=== PATIENT | male | born 2000 | race Caucasian/White ===

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

== ENCOUNTER 2019-05-10 22:17 | Emergency (ER) | payer MEDICAID, SELFPAY ==
[2019-05-10 22:18] VITALS: BP 134/77; PULSE 97; RESP 15; TEMP 36.6; O2SAT 98; BMI 27.8
--- NOTE | 2019-05-10 22:43 | ED.RN ---
pt's sex changed to female on reg as pt is not surgically transitioned to a male. Difficulty obtaining ordered labs () due to pt being originally entered as male.
[2019-05-10] MEDS: 0.9% Normal Saline 1,000 ML 125 ML IV (22:52)
[2019-05-10 23:10] LABS: Absolute Lymphocyte Count 2.07 X10^3/uL (0.83-4.51); Absolute Neutrophil Count 4.6 X10^3/uL (2.0-7.7); Basophil# 0.05 X10^3/uL; Basophil% 0.7 % (0-1); Eosinophil# 0.17 X10^3/uL; Eosinophils% 2.2 % (0-5); Hemoglobin 14.3 g/dL (12.0-15.0); Lymphocyte # 2.07 X10^3/ul (4.0); Mean Corp Hgb Conc 32.5 g/dL (32-36); Mean Corpuscular Hgb 27.1 pg (27.0-32.0); Mean Corpuscular Volume 83.3 fL (81-99); Mean Platelet Vol. 9.2 fl (6.2-12.0); Monocyte# 0.73 X10^3/uL; Monocyte% 9.5 % (0-10); NRBC Flagged by Analyzer 0 % (0-5); Neutrophil # 4.64 X10^3/uL (2.7-7.7); Neutrophil % 60.3 % (47-70); Platelet Count 349 K/mm3 (150-450); RBC Distribution Width CV 12.6 % (11.6-14.6); RBC Distribution Width SD 38.3 fl (35.1-43.9); Red Blood Count 5.28 M/mm3 (4.2-5.4); White Blood Count 7.7 K/mm3 (4.4-11.0)
[2019-05-10 23:31] LABS: ALB/GLOB Ratio 1.2 RATIO (0.9-2.4); AST(SGOT) 7 U/L (15-37); Alanine Aminotransfer ALT/SGPT 15 U/L (13-56); Albumin, Serum 4.1 g/dL (3.2-5.0); Alkaline Phosphatase 65 U/L (45-117); Anion Gap 8 (5-15); BUN 12 mg/dL (7-18); BUN/Creat Ratio 10.9 RATIO (10-20); Calcium,Total 8.7 mg/dL (8.5-10.1); Chloride 109 mmol/L (98-107); EST Glomerular Filtration Rate 68 mL/min (>60); Est Glom Filt Rate - Afr Amer 82 mL/min (>60); Estimated Creatinine Clearance 77.01 ml/min; Globulin 3.4 g/dL (2.2-4.2); Glucose 80 mg/dL (74-106); Lipase 137 U/L (73-393); Potassium 3.7 mmol/L (3.5-5.1); Protein, Total 7.5 g/dL (6.4-8.2); Sodium Level 141 mmol/L (136-145)
[2019-05-10 23:48] LABS: Lactic Acid 0.9 mmol/L (0.4-2.0)
[2019-05-11 00:09] LABS: Squamous Epithelial Cells - UA 0 SEEN /hpf (5-10)
[2019-05-11 00:11] LABS: Color, Urine Yellow (Yellow); Glucose, Dipstick Normal (Normal); Ketone-Dipstick Negative (Negative); Leukocyte Esterase-Dipstick 100 /ul (Negative); Nitrite-Dipstick Negative (Negative); Occult Blood-Urine 150 /ul (Negative); Protein-Dipstick Negative (Negative); Specific Gravity, Urine 1.015 (1.002-1.030); Urine Bilirubin Dipstick Negative (Negative); Urine Clarity Sl. Cloudy (Clear); Urine Urobilinogen Normal (Normal)
[2019-05-11 00:18] LABS: Amorphous Sediment 1+; Bacteria RARE /hpf (None Seen); Mucous, Urine 2+ /hpf (<or=2+); Red Blood Cells-Urine 5-10 SEEN /hpf (0-5); White Blood Cells 0-5 SEEN /hpf (0-5)
[2019-05-11 00:19] LABS: Internal QC Validated? YES +Cl - CLEAR BKGD; Pregnancy, Urine Negative Negative
--- NOTE | 2019-05-11 01:11 | ED.VISSUMM ---
- ER Visit Summary Date of Service: 05/11/19 Chief Complaint: [Abdominal pain] History of Present Illness: The patient is a 18 F [resents to the emergency department with abdominal pain that started 2 weeks ago. Patient states that she is had pain to the lower abdomen intermittently. Currently rates her pain a 6 out of 10. Patient had no nausea or vomiting. Intermittently she had some dysuria with lower abdominal pressure. Patient currently transitioning from female to male and is on testosterone. Patient had intermittent vaginal bleeding that is been irregular. Patient otherwise has no medical history. Patient has no prior surgical history.] Physical Examination: [HEENT-PERRLA, EOMI. Cranial nerves II through XII grossly intact. TMs clear. Mucous membranes moist. No adenopathy. Cardiovascular-regular rate and rhythm without murmur or ectopy Lungs-clear to auscultation, chest wall stable without crepitus or subcu emphysema Abdomen-normoactive bowel sounds, soft. Patient has tenderness to palpation over the right lower quadrant and suprapubic region. There is some mild guarding. There is no rebound, rigidity, or perineal signs. Extremities-intact ?4, normal range of motion, normal pulses, atraumatic] Test Results: [See what it was normal. Chemistries normal. LFTs normal. Lipase normal. Urinalysis unremarkable. hCG was negative. CT scan of the abdomen pelvis with IV and p.o. contrast showed right-sided kidney stone that is nonobstructing otherwise nothing acute. The appendix was normal. Ovaries appeared normal.] Emergency Department Course and Treatment: [She denies anything for pain here she was given normal saline.] Treatment Plan: [Follow-up with primary care physician in 3 to 5 days.] Disposition: [Discharged home in stable condition.] Impression: [Abdominal pain-etiology uncertain] This note was generated with [employer] software. It may contain incorrect words, spelling, and punctuation that were not noted in review of the chart prior to signing ED Disposition - Plan for ED Patient: Referrals: Alma Arcos MD [Primary Care Provider] -
--- NOTE | 2019-05-11 01:13 | ED.DEP ---
ED Disposition - Plan for ED Patient: Instructions: ABDOMINAL PAIN, Unknown Cause, (Female) Referrals: Alma Arcos MD [Primary Care Provider] - 3-5 Days
[2019-05-11 01:23] VITALS: BP 125/79; PULSE 69; RESP 16
--- NOTE | 2019-05-11 22:36 | CT_ITS ---
STUDY: CT ABDOMEN AND PELVIS WITH CONTRAST REASON FOR EXAM: Female, 18 years old. Lower abdominal pain with vaginal bleeding. RADIATION DOSAGE (If Supplied By Facility): CTDIvol = ( 15.64 ) mGy, DLP = ( 1015.41 ) mGycm TECHNIQUE: Transaxial images were obtained from the dome of the diaphragm to the symphysis pubis with oral contrast. Oral and amp; IV Gastrografin and amp; 100mL Isovue-300 100ML was administered. Sagittal and coronal images were reconstructed. Individualized dose optimization techniques were used for this CT. COMPARISON: None. FINDINGS: The visualized lung bases are unremarkable. The visualized portions of the heart are within normal limits. Normal liver. Normal gallbladder and extrahepatic biliary system. Normal spleen. Normal pancreas. Normal bilateral adrenal glands. There is a 1.3 mm stone within the middle pole of the right kidney. There is a small fatty attenuation structure at the lower pole of the right kidney measuring 3.7 mm compatible with small angiomyolipoma. Otherwise normal otherwise normal right kidney. Normal left kidney. Normal visualized stomach. Normal small intestine. Normal colon. The appendix is visualized and appears normal. Normal abdominal aorta. Normal inferior vena cava. Normal retroperitoneum. Normal urinary bladder. Uterus is anteverted. Bilateral ovaries are normal. Trace amount of free fluid in the cul-de-sac seen. Normal abdominal wall. Normal osseous structures. CT/Abdomen/Pelvis WITH Contrast IMPRESSION: Nonobstructive right-sided intrarenal stone. Remainder of abdominal viscera unremarkable. No acute appendicitis. No bowel obstruction. Electronically Signed: Babita Hernandez MD at 1:04 EDT , Service support ,
== END 2019-05-11 01:24 | disposition home or self-care (01) ==
PROVIDERS: Emergency Provider Emergency Medicine; Family Provider Pediatrics; PCP Pediatrics
DX: R10.31 Right lower quadrant pain (principal)
CPT/HCPCS: 74177; 80053; 81001; 81025; 83605; 83690; 85025; 96360; 99283; J7030; Q9967; A4216

== ENCOUNTER 2019-07-04 16:32 | Emergency (ER) | payer MEDICAID, SELFPAY ==
[2019-07-04 16:34] VITALS: BP 136/84; PULSE 105; RESP 16; TEMP 36.9; O2SAT 100; BMI 28.4
--- NOTE | 2019-07-04 17:08 | CT_ITS ---
STUDY: CT ABDOMEN AND PELVIS WITHOUT CONTRAST REASON FOR EXAM: Female, 18 years old. B/L FLANK PAIN RIGHT SIDE WORSE X 3 DAYS WITH NAUSEA RADIATION DOSAGE (If Supplied By Facility): CTDIvol = ( 8.62 ) mGy, DLP = ( 450.28 ) mGycm TECHNIQUE: Transaxial images were obtained from the dome of the diaphragm to the symphysis pubis without oral contrast, and without intravenous contrast. Sagittal and coronal images were reconstructed. Individualized dose optimization techniques were used for this CT. COMPARISON: May 11, 2019 FINDINGS: The visualized lung bases are unremarkable. The visualized portions of the heart are within normal limits. Lack of intravenous contrast limits evaluation of solid visceral organs. Normal liver. Normal gallbladder and extrahepatic biliary system. Normal spleen. Normal pancreas. Normal bilateral adrenal glands. There is a nonobstructing 3.3 mm right renal calculus. Normal left kidney. Normal visualized stomach. Normal small intestine. Normal colon. There is non-visualization of the appendix. Normal abdominal aorta. Normal inferior vena cava. Normal retroperitoneum. Normal urinary bladder. There are grossly stable low attenuation rounded foci within the adnexae. There is minimal free fluid within the pelvis which may be physiologic. Normal abdominal wall. Normal osseous structures. CT/Abdomen/Pelvis without Cont IMPRESSION: Nonobstructing 3.3 mm right renal calculus. Electronically Signed: Shanti Wilson MD at 18:30 EST Tel , Service support ,
--- NOTE | 2019-07-04 17:09 | ED.VISSUMM ---
- ER Visit Summary Date of Service: 07/04/19 Chief Complaint: Abdominal pain History of Present Illness: The patient is a 18 F presenting with abdominal pain. She states this started 3 days ago. Pain is in the right lower quadrant. She has some right lower back pain as well. She has tried ibuprofen at home with some relief. She denies any recent injury or lifting. Denies numbness or weakness. Denies bowel or bladder incontinence. Denies fever. She has nausea with no vomiting. Denies diarrhea or constipation. Denies urinary complaints. Physical Examination: Vitals are stable. Patient is afebrile. Alert no acute distress. HEENT exam is unremarkable. Neck is supple. Lungs are clear and equal bilaterally. Heart is regular rate and rhythm. Abdomen is soft right lower quadrant tenderness with no rebound or guarding Extremities are unremarkable. Skin is warm and dry. No focal neurologic deficit. Remainder of exam is unremarkable. Emergency Department Course and Treatment: Patient was given IV fluids, morphine, Zofran. CBC, chemistries unremarkable. Urinalysis shows 0-5 white blood cells, 0 red blood cells. hCG negative. CT abdomen shows nonobstructing 3.3 mm right renal calculus. On reevaluation, patient is resting comfortably. Her abdomen is soft and nontender. She is advised strict return instructions should her symptoms worsen. Advised to follow-up with primary care physician. Advised return to ED for worsening complaints. Disposition: Discharge home Impression: Right flank pain This note was generated with [employer] dictation software. It may contain incorrect words, spelling, and punctuation that were not noted in review of the chart prior to signing ED Disposition - Plan for ED Patient: Instructions: FLANK PAIN, Uncertain Cause Prescriptions: Naproxen [Naprosyn] 500 mg PO BID PRN #20 tab Prescription Printed Referrals: Alma Arcos MD [Primary Care Provider] -
[2019-07-04 17:37] LABS: Mucous, Urine 0 SEEN /hpf (<or=2+); Red Blood Cells-Urine 0 SEEN /hpf (0-5)
[2019-07-04] MEDS: Morphine 4 MG/ML Syringe IV (17:37)
[2019-07-04] MEDS: Ondansetron 4 MG/2 ML Vial IV (17:37)
[2019-07-04] MEDS: 0.9% Normal Saline 1,000 ML 1000 ML IV (17:37)
[2019-07-04 17:40] LABS: Color, Urine Yellow (Yellow); Glucose, Dipstick Normal (Normal); Ketone-Dipstick Negative (Negative); Leukocyte Esterase-Dipstick 25 /ul (Negative); Nitrite-Dipstick Negative (Negative); Occult Blood-Urine Negative /ul (Negative); Protein-Dipstick Negative (Negative); Urine Bilirubin Dipstick Negative (Negative); Urine Clarity Clear (Clear); Urine Urobilinogen Normal (Normal)
[2019-07-04 17:48] LABS: Absolute Lymphocyte Count 1.25 X10^3/uL (0.83-4.51); Absolute Neutrophil Count 6.6 X10^3/uL (2.0-7.7); Basophil# 0.06 X10^3/uL; Basophil% 0.7 % (0-1); Eosinophil# 0.14 X10^3/uL; Eosinophils% 1.6 % (0-5); Hematocrit 42.8 % (37-47); Hemoglobin 14.2 g/dL (12.0-15.0); Lymphocyte # 1.25 X10^3/ul (4.0); Lymphocyte % 14.3 % (19-41); Mean Corp Hgb Conc 33.2 g/dL (32-36); Mean Corpuscular Hgb 27.1 pg (27.0-32.0); Mean Corpuscular Volume 81.7 fL (81-99); Mean Platelet Vol. 9.3 fl (6.2-12.0); Monocyte# 0.65 X10^3/uL; Monocyte% 7.4 % (0-10); NRBC Flagged by Analyzer 0 % (0-5); Neutrophil # 6.59 X10^3/uL (2.7-7.7); Neutrophil % 75.5 % (47-70); Platelet Count 320 K/mm3 (150-450); RBC Distribution Width CV 13.1 % (11.6-14.6); RBC Distribution Width SD 38.5 fl (35.1-43.9); Red Blood Count 5.24 M/mm3 (4.2-5.4); White Blood Count 8.7 K/mm3 (4.4-11.0)
[2019-07-04 17:48] LABS: Bacteria 1+ /hpf (None Seen); Squamous Epithelial Cells - UA 0-5 SEEN /hpf (5-10); White Blood Cells 0-5 SEEN /hpf (0-5)
[2019-07-04 17:57] LABS: Internal QC Validated? YES +Cl - CLEAR BKGD; Pregnancy, Serum, hCG Quali. NEGATIVE Negative
[2019-07-04 18:01] LABS: Anion Gap 6 (5-15); BUN 7 mg/dL (7-18); BUN/Creat Ratio 6.4 RATIO (10-20); Calcium,Total 8.6 mg/dL (8.5-10.1); Chloride 111 mmol/L (98-107); EST Glomerular Filtration Rate 68 mL/min (>60); Est Glom Filt Rate - Afr Amer 82 mL/min (>60); Estimated Creatinine Clearance 77.01 ml/min; Glucose 102 mg/dL (74-106); Potassium 3.9 mmol/L (3.5-5.1); Sodium Level 139 mmol/L (136-145)
[2019-07-04 18:33] VITALS: BP 130/72; PULSE 73; RESP 16; O2SAT 100
--- NOTE | 2019-07-04 18:53 | ED.DEP ---
ED Disposition - Plan for ED Patient: Instructions: FLANK PAIN, Uncertain Cause Prescriptions: Naproxen [Naprosyn] 500 mg PO BID PRN #20 tablet Referrals: Alma Arcos MD [Primary Care Provider] -
== END 2019-07-04 18:58 | disposition home or self-care (01) ==
LOC: ED 16:59
PROVIDERS: Emergency Provider Emergency Medicine; Family Provider Pediatrics; PCP Pediatrics
DX: R10.9 Unspecified abdominal pain (principal); N20.0 Calculus of kidney
CPT/HCPCS: 74176; 80048; 81001; 84703; 85025; 96361; 96374; 96375; 99283; J7030; A4216; J2405

== ENCOUNTER 2019-07-18 11:55 | Emergency (ER) | payer MEDICAID, SELFPAY ==
[2019-07-18 11:55] VITALS: BP 123/73; PULSE 95; RESP 18; TEMP 36.6; O2SAT 100; BMI 27.7
--- NOTE | 2019-07-18 12:58 | ED.DCSUM_ITS ---
History of Present Illness Chief Complaint: Abd Pain Informant: Patient Onset: Weeks Context: Gradual Onset Timing: Waxes and wanes Current Severity: Moderate Maximum Severity: Moderate Narrative: Patient presents with pain throughout the trunk area. She describes pain in the chest and abdomen as well as in her back. Patient is female undergoing transition to male gender. Patient was seen here in the ER on the and found have a 3.3 mm right renal calculus but no other acute findings. Patient states she followed up with [facility] few days later where an x- ray and ultrasound were performed. Right ovary was found to be inflamed and she was constipated. She has been on senna twice daily as well as MiraLAX. She states the hormone regimen she is on has not been changed in the last couple of years. There has been no other recent changes to medications. - Past Medical History (1) Kidney stone Status: Chronic (2) Bipolar disorder Status: Chronic Past Medical History - Allergies and Home Meds Allergies/Adverse Reactions: Allergies ANTIPSYCHOTIC Allergy (Uncoded 07/18/19 11:59) Angioedema Primary Care Physician: Alma Arcos MD [Primary Care Provider] - Prior records reviewed: Yes Lives: With Family Smoking Status: Former smoker Review of Systems General: Denies: Chills, Fever Eyes: Denies: Visual changes - bilaterally ENT: Denies: Bilateral ear pain Cardiovascular: Reports: Chest pain Respiratory: Denies: Dyspnea, Cough Gastrointestinal: Reports: Abdominal pain. Denies: Nausea, Vomiting, Diarrhea Genitourinary: Denies: Dysuria Musculoskeletal: Reports: Back pain. Denies: Extremity Pain Skin: Denies: Rash Neurological: Denies: Headache Hematologic: Denies: Easy bruising Allergy: Denies: Uticaria Physical Exam Vital Signs/Narrative: Vital Signs Temp Pulse Resp BP Pulse Ox 07/18/19 11:55 98 F 95 18 123/73 H 100 Inital Vital Signs reviewed: Yes General: Well nourished, Well developed Head: Normocephalic ENT: Moist mucous membranes Neck: Supple Cardiovascular: Regular rate, Regular rhythm Respiratory: No distress, CTA bilaterally Abdomen: Soft, Nontender, Normal bowel sounds Extremities: Nontender Skin: Normal color, No rash Neurological: Alert, Oriented x3 Psychological: Normal affect Diagnostic/Tx/Re-eval Impressions KUB X-Ray 07/18/19 13:17 IMPRESSION: Normal x-ray examination of the abdomen and pelvis. Electronically Signed: Bharath Lagos MD at 14:36 EST , Service support , 07/18/19 13:17 Abdomen Single View [RAD] Stat Laboratory Results 07/18/19 07/18/19 07/18/19 12:30 12:30 13:15 WBC 10.6 RBC 5.33 Hgb 14.2 Hct 44.2 MCV 82.9 MCH 26.6 L MCHC 32.1 RDW Std Deviation 39.9 RDW Coeff of Tomi 13.2 Plt Count 403 MPV 9.4 Immature Gran % (Auto) 0.700 Neut % (Auto) 76.6 H Lymph % (Auto) 13.7 L Donley % (Auto) 7.2 Eos % (Auto) 1.2 Baso % (Auto) 0.6 Absolute Neuts (auto) 8.1 H Absolute Lymphs (auto) 1.46 Nucleated RBC % 0 Sodium 140 Potassium 4.2 Chloride 112 H Carbon Dioxide 23.0 Anion Gap 5 BUN 7 Creatinine 1.12 H Estim Creat Clear Calc 75.63 Est GFR (MDRD) Af Amer 80 Est GFR (MDRD) Non-Af 66 BUN/Creatinine Ratio 6.2 L Glucose 79 Calcium 8.8 Total Bilirubin 0.60 Direct Bilirubin 0.15 AST 5 L ALT 19 Alkaline Phosphatase 62 Total Creatine Kinase 118 Total Protein 8.0 Albumin 4.1 Globulin 3.9 Urine Color Yellow Urine Clarity Clear Urine pH 6.0 Ur Specific [place] 1.025 Urine Protein 15 H Urine Glucose (UA) Normal Urine Ketones 5 H Urine Occult Blood 50 H Urine Nitrite Negative Urine Bilirubin Negative Urine Urobilinogen Normal Ur Leukocyte Esterase 100 H Urine RBC 0-5 SEEN Urine WBC 10-25 SEEN Ur Squamous Epith Cells 0-5 SEEN Urine Bacteria 0 SEEN Urine Mucus 1+ - Medical Decision Making Was given Toradol and IV fluids here. She states that did help the body aches but they are starting to come back. We will write her prescription for Toradol to take on a regular basis. She was advised not to use ibuprofen or Aleve with this. X-ray was read as normal but I do note stool in both the ascending and descending colon. I encouraged her to go ahead and use the MiraLAX twice a day for couple days to completely clean out her system. Follow-up with PCP next week if not improved. ED Disposition - Plan for ED Patient: Disposition: Home or Assisted Living Diagnosis: Abdominal pain Instructions: ABDOMINAL PAIN, Unknown Cause, (Female) Prescriptions: Ketorolac [Toradol] 10 mg PO Q6H PRN #20 tab PRN Reason: Pain Score 4-10/10 Transmission Status: Pending to [facility] [place] #30 Referrals: Alma Arcos MD [Primary Care Provider] - 1 Week
[2019-07-18 13:08] LABS: Absolute Lymphocyte Count 1.46 X10^3/uL (0.83-4.51); Absolute Neutrophil Count 8.1 X10^3/uL (2.0-7.7); Basophil# 0.06 X10^3/uL; Basophil% 0.6 % (0-1); Eosinophil# 0.13 X10^3/uL; Eosinophils% 1.2 % (0-5); Hematocrit 44.2 % (37-47); Hemoglobin 14.2 g/dL (12.0-15.0); Lymphocyte # 1.46 X10^3/ul (4.0); Lymphocyte % 13.7 % (19-41); Mean Corp Hgb Conc 32.1 g/dL (32-36); Mean Corpuscular Hgb 26.6 pg (27.0-32.0); Mean Corpuscular Volume 82.9 fL (81-99); Mean Platelet Vol. 9.4 fl (6.2-12.0); Monocyte# 0.76 X10^3/uL; Monocyte% 7.2 % (0-10); NRBC Flagged by Analyzer 0 % (0-5); Neutrophil # 8.14 X10^3/uL (2.7-7.7); Neutrophil % 76.6 % (47-70); Platelet Count 403 K/mm3 (150-450); RBC Distribution Width CV 13.2 % (11.6-14.6); RBC Distribution Width SD 39.9 fl (35.1-43.9); Red Blood Count 5.33 M/mm3 (4.2-5.4); White Blood Count 10.6 K/mm3 (4.4-11.0)
[2019-07-18] MEDS: Ketorolac 30 MG/ML Syringe IV (13:11)
[2019-07-18] MEDS: 0.9% Normal Saline 1,000 ML 1000 ML IV (13:11)
--- NOTE | 2019-07-18 13:17 | RAD_ITS ---
STUDY: X-RAY - ABDOMEN/PELVIS REASON FOR EXAM: Female, 18 years old. ABDOMEN, RIB,CHEST, FLANK PAIN X SEVERAL MOs. UNDERGOING HORMONE THERAPY. STATES OVARY IS ENLARGED TECHNIQUE: AP supine and upright views of the abdomen and pelvis. COMPARISON: Noncontrast CT abdomen and pelvis of the 22,019 FINDINGS: Normal visualized lung bases. There is a nonspecific pattern of gas in nondistended segments of small bowel and colon. There is no demonstrated free abdominal air. The visualized liver, spleen and kidneys are grossly normal in size and morphology. Normal soft tissue structures. Normal visualized osseous structures. RAD/Abdomen Single View IMPRESSION: Normal x-ray examination of the abdomen and pelvis. Electronically Signed: Bharath Lagos MD at 14:36 EST , Service support ,
[2019-07-18 13:23] LABS: Bacteria 0 SEEN /hpf (None Seen)
[2019-07-18 13:24] LABS: AST(SGOT) 5 U/L (15-37); Alanine Aminotransfer ALT/SGPT 19 U/L (13-56); Albumin, Serum 4.1 g/dL (3.2-5.0); Alkaline Phosphatase 62 U/L (45-117); Anion Gap 5 (5-15); BUN 7 mg/dL (7-18); BUN/Creat Ratio 6.2 RATIO (10-20); Bilirubin, Direct 0.15 mg/dL (0.00-0.30); CPK Total, Creatine Kinase 118 U/L (26-192); Calcium,Total 8.8 mg/dL (8.5-10.1); Chloride 112 mmol/L (98-107); Creatinine, Serum 1.12 mg/dL (0.55-1.02); EST Glomerular Filtration Rate 66 mL/min (>60); Est Glom Filt Rate - Afr Amer 80 mL/min (>60); Estimated Creatinine Clearance 75.63 ml/min; Globulin 3.9 g/dL (2.2-4.2); Glucose 79 mg/dL (74-106); Potassium 4.2 mmol/L (3.5-5.1); Sodium Level 140 mmol/L (136-145)
[2019-07-18 13:30] LABS: Color, Urine Yellow (Yellow); Glucose, Dipstick Normal (Normal); Ketone-Dipstick 5 mg/dl (Negative); Leukocyte Esterase-Dipstick 100 /ul (Negative); Nitrite-Dipstick Negative (Negative); Occult Blood-Urine 50 /ul (Negative); Protein-Dipstick 15 mg/dl (Negative); Specific Gravity, Urine 1.025 (1.002-1.030); Urine Bilirubin Dipstick Negative (Negative); Urine Clarity Clear (Clear); Urine Urobilinogen Normal (Normal)
[2019-07-18 13:42] LABS: Mucous, Urine 1+ /hpf (<or=2+); Red Blood Cells-Urine 0-5 SEEN /hpf (0-5); Squamous Epithelial Cells - UA 0-5 SEEN /hpf (5-10); White Blood Cells 10-25 SEEN /hpf (0-5)
[2019-07-18 14:25] VITALS: BP 130/82; PULSE 70; RESP 16; O2SAT 97
[2019-07-18 16:00] VITALS: RESP 16
== END 2019-07-18 16:43 | disposition home or self-care (01) ==
PROVIDERS: Emergency Provider Emergency Medicine; Family Provider Pediatrics; PCP Pediatrics
DX: R10.9 Unspecified abdominal pain (principal); F31.9 Bipolar disorder, unspecified; Z87.442 Personal history of urinary calculi; Z79.899 Other long term (current) drug therapy; Z87.891 Personal history of nicotine dependence
CPT/HCPCS: 74018; 80048; 80076; 81001; 82550; 85025; 96361; 96374; 99283; J7030; A4216

== ENCOUNTER → 2019-07-23 11:35 | Outpatient (CLI) | payer MEDICAID, SELFPAY ==
[2019-07-18 11:55] VITALS: BMI 27.7
--- NOTE | 2019-07-23 11:40 | RAD_ITS ---
STUDY: X-RAY - ABDOMEN/PELVIS REASON FOR EXAM: Female, 18 years old. constipation, diarrhea, abd pain TECHNIQUE: Two AP supine views of the abdomen and pelvis. COMPARISON: July 18, 2019 FINDINGS: Normal visualized lung bases. There is an unremarkable bowel gas pattern. There is no demonstrated free abdominal air. The visualized liver, spleen and kidneys are grossly normal in size and morphology. Normal soft tissue structures. Normal visualized osseous structures. RAD/Abdomen Single View IMPRESSION: Normal x-ray examination of the abdomen and pelvis. Electronically Signed: Mansoor Obrien DO at 12:20 EST Tel , Service support ,
== END ==
PROVIDERS: Family Provider Pediatrics; PCP Pediatrics; Referring Provider Pediatrics; Visit Provider Pediatrics
DX: K59.00 Constipation, unspecified (principal)
CPT/HCPCS: 74018

== ENCOUNTER 2019-09-01 09:00 | Outpatient (RCR) | payer MEDICAID, SELFPAY ==
--- NOTE | 2019-09-01 09:00 | BH.COMM ---
Communication Note - Communication with Client Communication Note: completed initial paperwork with patient. No significant changes since pre-admission screening. Completed C-SSRS with patient with moderate risk. Pt denies any active suicidal ideations since 07/16/2019. Notes urges to perform self-injurious behaviors and a desire to disappear however clarifies this means Starting over somewhere else.
--- NOTE | 2019-09-01 09:04 | BH.SGPN.GN ---
Behaviors/Verbalizations/Mental Status: []Eye contact is fair to good. Motor activity is appropriate. Appearance is casual. Speech is WNL. Mood is anxious and depressed. Affect is congruent. Thoughts are linear and logical. No evidence of psychosis. Reviewed daily check in sheet and pt reports 2/5 for suicidal ideation and 1/5 for intent. PPt met with environmental programs specialist to complete [place] assessment and further assess for risk. Client Response/Progress/Benefit: []Pt first day in IOP tx, responded well to session. Pt was actively listening throughout but a passive participant. Willing to process with group. Reports emotion for the day as ?anxious?. Pt identified current mental health wins as being able to make it to group and begin the IOP program despite experiencing anxiety about doing so. Shared his mother aided in encouraging him to do so. Additional win identified as being able to take time out of his weekend to engage in self-care over the weekend via reading a book he enjoys. Stressor indicated as managing his mental health sx and continuing to struggle with anxiety and intrusive thoughts. Progress noted in pt ability to attend group on this date rather than continue to engage in avoidance behaviors. Recommended continued IOP tx to promote healthy change behaviors, improve anxiety management, and reduce overall mental health sx severity. Narrative Note: []
--- NOTE | 2019-09-01 10:15 | BH.SGPN.GN ---
Behaviors/Verbalizations/Mental Status: []Eye contact is good. Motor activity is appropriate. Appearance is casual. Speech is Appropriate. Mood is anxious and depressed. Mood is constricted. Thoughts are linear and logical. No evidence of psychosis. Client Response/Progress/Benefit: []Pt was a mostly passive participant throughout session AEB pt providing limited input during discussion, however engaged in activity and listened attentively to others. Worked with peers to identify and define pitfalls in mental health. Attentive on psycho-education on the impact of how one james with or manages pitfalls in regards to mental health. Group worked together to identify what keeps us stuck or vulnerable to pitfalls which included; loss of motivation, fear of unknown, anxiety, unhealthy coping, self-sabotage, self-fulfilling prophecy, impatience, and self-doubt. Pt stated an example of a personal pitfall is when he purposefully thinks bad thoughts or engage in behaviors that are hurtful. Benefited from increased awareness on the impact that pitfalls can have on mental health. Narrative Note: []
--- NOTE | 2019-09-01 11:16 | BH.SGPN.GN ---
Behaviors/Verbalizations/Mental Status: []Client alert and oriented, casual appearance. Eye contact fair. Motor activity appropriate. Speech within normal limits. Affect congruent to topic, mood depressed. Thoughts linear, logical, no signs of hallucinations or delusions. Client Response/Progress/Benefit: []Client receptive of session, engaged throughout AEB client taking notes and participating when prompted. Processed activity with group and connected it to overcoming personal pitfalls in life. Client completed a worksheet where he identified personal pitfalls impacting mental health progress. Identified pitfalls as: over thinking, self-sabotaging, purposely triggering himself, not having self-control, and negative thinking. Client recognized that with awareness and use of healthy coping skills, it is possible to prevent or better manage pitfalls. Attentive and contributing during psychoeducation on strategies to overcome pitfalls. Client stated he will work on preventing pitfalls by not indulging in unhealthy coping skills and taking breaks when he needs to. Benefited from identifying personal pitfalls and strategies to overcome these pitfalls. Client's first day in IOP. Will continue IOP tx to prevent decompensation and decrease mood dysregulation. Narrative Note: []
--- NOTE | 2019-09-03 09:37 | BH.NA ---
Physical Data - Vital Signs Temperature: 98.2 F Pulse Rate: 80 Respiratory Rate: 16 Blood Pressure: 102/62 - Height/Weight Height: 1.68 m Weight:: 77.111 kg Weight in Pounds: 170.0 lbs Current Medication Compliance - Medication Compliance Do you take your medication as prescribed?: Yes Nutritional History - Appetite Nutritional Instructions:: If client shows signs of a swallowing problem, weight change of 10 pounds or more in the last month, or is on a diabetic diet, the physician will review and request a dietitian consult, as appropriate. All unintentional weight loss will be referred to the physician for decision on need for dietitian consult. Describe your appetite:: Poor - Client states eating is a very complicated thing for me. Client states he is constantly losing weight due to not wanting to eat. Client states he hates the idea of food, does not like how eating feels, and does not like the idea of gaining weight because that would make me feel disguisting. When asked if client has some foods he likes to eat, client states he always eats very little amounts at a time. Functional Assessment - Sleep Pattern Describe any problems with sleeping: Client states he has had a sleep study in the past that showed he does not enter REM sleep easily. Client states he tried Melatonin after that without good effect. Client states he sleeps maybe 4-5 hours per night and has nightmares at times that cause panic attacks. - Activities Motor Activity:: Functional Sensory/Communication Assess - Vision Problems Do you have any vision problems?: Glasses - Communication Problems Do you have difficulty understanding what people are saying?: No Medical Problems/History - Neurological Conditions Neurological: Other (See comments) Comments:: migraines - Gastrointestinal Conditions Gastrointestinal: Other (See comments) Comments:: recently in the emergency department with abdominal pain, was put on stool softners for constipation. Client states this has improved, bowel movements are more normal, and is not taking stool softners currently. - Musculoskeletal Conditions Musculoskeletal: Other (See comments) Comments:: chronic fatigue syndrome Substance Abuse - Substance Abuse Please describe substance abuse in the last 30 days:: Client denies alcohol use. Client states he smokes cigarettes off and on but not on a regular basis. Client states he used marijuana some years ago and also took some pills a few times years ago. Client denies current drug use. Mental Status Summary - Mental Status Significant Findings/Observations on Appearance and Mood:: Client is alert and oriented x4. Client is neatly groomed. Client is cooperative with assessment. Client makes good eye contact during conversation. Client's voice rate and volume normal and speech coherent and spontaneous. Client appears mildly depressed and anxious with some anhedonia. Client answers all questions with appropriate response, but usually smiling while talking even about self-injury and daily panic attack symptoms. Client denies SI, but states he does sometimes think about just disappearing. Client with normal processing. Client with good attention and concentration during assessment. Suicide Assessment - Suicidal Ideation Are you currently or have you been suicidal in the past?: Yes - denies SI currently Suicidal Intentional Rating Scale (SIRS): Suicidal thoughts (past) Physician Notification: If Active suicidal thoughts/Will not contract for safety is checked, contact physician and document in the Physician Notification section below. Past Psychiatric History - MH Treatment Hx Past Psychiatric Medications:: Client states he tried many medications as a child but does not remember which medications. Client states he may have been on Zoloft. Age of first mental health symptoms: Client states he was around 6 years old when he was first diagnosed with depression and states he believes his anxiety started then as well. Client states he has been told by his therapist that he has bipolar features but has not been diagnosed. Describe (age, circumstance, etc) any past hospitalizations: Client states he was hospitalized at [facility] in 2013. Current providers for mental health treatment (counselor, psychiatrist, case preparer and liner, etc.): Client states he sees Diya Dewey for counseling but has not seen in 6 months. Fall Risk Assessment - Age Age: Less than 60 - Mental Status Mental Status: Willing & able to ask for assistance when needed - Physical Status Physical Status: No problems - Impairments Impairments: None - Elimination Elimination: Continent AND independent - Gait or Balance Gait or Balance: Walks independently - Hx of Falls History of falls in the past 6 months: No known history - Medications/Substances Psychotropics:: Antidepressants, Anxiolytics (e.g. benzodiazepines) Medications/substances used within the past 24 hours or ordered to administer: 1-2 of the medications/substances listed above - Total Score Total Points:: 1 RN Summary of Impressions - Impressions Recommendations: Include psychiatric and medical issues, treatment planning recommendations, and discharge planning needs. Impressions: Psychiatric Issues: Bipolar 2 disorder, most recently depressed. Generalized anxiety disorder. Gender identity disorder. Impression: General Medical Conditions: Client discusses problems with appetite and aversion to eating, and discusses recent issue with constipation. Client states he has an appointment with a GI doctor next month for issues. - Level of Care How do the client's current symptoms and functional deficits support need for this level of care?: Client is a transgender male, born a female but taking testeosterone hormone therapy. Client states he has been going to therapy for a few years, and states his therapist recommended he come here after some of the stuff I told her about. Client reports long time history of anxiety and depression. Client states he saw a psychiatrist at [facility] once but states that he not like because they called him a girl. Client states he has been told for a long time that he needs to see a psychiatrist. Client states his therapist told him he has bipolar features but has not been diagnosed. Client states he sometimes has self injurous behavior, stating the last time he hurt himself was about 3 months ago and states that he does not have any open wounds from same. Client reports feelings of isolation, low support system, anxiety when away from mother, and reports daily feelings of panic and anxiety. Client states his panic attacks consist of tingling in his back, his throat feeling dry, chest discomfort, hot cold flashes. Client denies SI at this time but states he frequently thinks about just disappearing. Client describes a lot of difficulty with eating, stating he does not like eating or how it feels. Client states he is afraid of gaining weight because that will make me feel disgusting. IOP will promote gains and prevent further decompensation while providing social support and skills training.
--- NOTE | 2019-09-03 10:18 | BH.SGPN.GN ---
Behaviors/Verbalizations/Mental Status: []Client alert and oriented, casually dressed and groomed. Eye contact good. Motor activity appropriate. Speech within normal limits. Affect constricted, mood dysthymic, anxious. Thoughts linear, logical, no signs of hallucinations or delusions. Client Response/Progress/Benefit: []Client was a passive participant during discussion, but active during the activity. Client took notes while the group discussed the quote and defined resilience. Client able to make connections between activity and barriers/supports to the development of a resilient lifestyle AEB nodding. Client agreed with peers that one can learn to become more resilient throughout life. Client was quiet during large group discussion, but attentive during small group discussion. Client able to work with group to discuss benefits of resilience on mental health which included; better management of mental health symptoms, increased healthy coping skills, increased confidence, less fear of stressors, and personal growth. Progress limited due to recently starting IOP, but he appears to be connecting with peers well. Recommended continued IOP tx to decrease mood dysregulation, maintain safety, and improve healthy coping skills. Narrative Note: []
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
[2019-09-03 11:52] VITALS: BP 102/62; PULSE 80; RESP 16; TEMP 36.8
--- NOTE | 2019-09-03 12:30 | BH.MDN_ITS ---
Multi-Disciplinary Note - Note 30-min Individual Time Started:: 11:54 Date: 09/03/19 Purpose of session/treatment goals addressed:: The purpose of this session was to gather information on client's current stressors, symptoms, and treatment goals. Another goal was to build rapport and identify current coping mechanisms. Eye Contact:: Good Motor Activity:: Appropriate Appearance:: Casual Speech:: Appropriate Mood:: Anxious, Depressed Affect:: Other - incongruent w/mood AEB pt laughing and smiling while discussing stressors impacting anxiety and depression Thoughts:: Linear, Logical, No evidence of hallucinations/delusions noted Staff Interventions:: Therapist used active listening and open-ended questions to explore client's current stressors, symptoms, history, and current coping skills Therapist used strengths perspective to build rapport and help client identify personal resilience factors. Therapist applied ID techniques to identify current barriers as well as goals for treatment. Client Response:: Client responded well to session, open to meeting with therapist. Client receptive to discussing treatment goals and answering questions from therapist. Client reported he has been seeing Diya Dewey for outpatient counseling and that he feels this has not been intensive enough for his mental health needs. Discussed that he has a hx of depression and anxiety but been struggling with increased mental health sx in the past few weeks resulting in isolating, not eating, decreased motivation, and passive thoughts of not wanting to be alive. Discussed that he was referred to [facility] tx by his mother as she has expressed concerns regarding pt increase in mental health sx. Pt stated that he had initially felt anxious about attending [facility] tx and almost did not begin the program but was afraid of letting down his mother if he didn?t. Expressed that since starting he has felt more comfortable and is beginning to believe that the program could be beneficial to improving his mental health and mood stability. Client stated he wants to learn how to better manage his emotions as he often feels either numb, anxious, or angry but does not typically experience any other emotion. Expressed symptoms of anhedonia, dec reased motivation, irritability, and ruminating thoughts causing increased anxiety and reinforcing depression. Pt shared feeling he often takes his anxiety out on others as anger and says mean things to his supports. Noted wanting to improve upon this area as well as learn skills for better communicating with supports. Client's current coping skills include; playing video games, sleeping, and reaching out to his mom. Shared wanting to develop additional healthy coping mechanisms for reducing depression and anxiety. Risks/Concerns:: Client denies any active suicidal ideations, plan, or intent as of 09/03/19. Client reports ability to maintain safety and Feels that he can go to the ER should he feel like he cannot keep himself safe. Progress Toward Goals/Plan:: Client's second day of IOP, no progress to document. Client reports improved motivation for treatment now that he has become more comfortable in tx environment. He endorses a depressed mood, anhedonia, isolative behaviors, lack of motivation, emotion dysregulation, impulsivity, anxiety, and avoidance behaviors. Client identified his treatment goals to be lessening depression and lessening anxiety. Will continue IOP tx to prevent decompensation, maintain safety, and improve daily functioning.
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
--- NOTE | 2019-09-03 13:28 | BH.DR.ITP ---
Initial Treatment Plan - Patient Information Visit Information: ADMISSION DATE: EXPECTED LOS: 4-6 weeks - Problems/Symptoms Problem #1:: Depression Symptom:: Sadness, decreased concentration, passive suicidal ideation, anhedonia Problem #2:: Anxiety Symptom:: Rumiantion, worry, panic attacks
--- NOTE | 2019-09-05 09:09 | BH.SGPN.GN ---
Behaviors/Verbalizations/Mental Status: []Pt alert and orient x3. Eye contact fair to good. Motor activity is appropriate. Appearance is casual. Speech is Appropriate, limited input provided. Mood is dysthymic, anxious. Affect is congruent. Thoughts are linear and logical. No evidence of psychosis. Reviewed daily check in sheet and pt reports suicidal ideations at 2/5 and intent as 1/5. Consistent with [place]. Pt denies active SI, plan or intent. Client Response/Progress/Benefit: []Pt responded well to session AEB pt listening attentively to others and willing to process with group. Pt reported current emotion as ?anxious? and indicated this is due to continuing to struggle with adjusting to group environment and current familial stressors. Pt did well to identify additional mental health wins. Indicating a mental health positive was being able to get here today despite desire to isolate and not do the anxious thing. Shared his mother has been a major support in this area. Shared additional win as being able to handle an adverse reaction to his medication resulting in hospitalization without panic. Shared that this had been major progress as he often struggles to even go to the store without his mother. Noted he continues to struggle with urges to avoid and negative thoughts. Progress noted in increased use of reframing and thought challenging. Pt recommended to continue IOP to increase healthy coping, improve healthy emotion regulation, and prevent decompensation. Narrative Note: []
--- NOTE | 2019-09-05 10:16 | BH.SGPN.GN ---
Behaviors/Verbalizations/Mental Status: []Client alert and oriented, casually dressed and groomed. Eye contact good. Motor activity appropriate. Speech within normal limits. Affect congruent, mood anxious, depressed. Thoughts linear, logical, no signs of hallucinations or delusions. Client Response/Progress/Benefit: []Pt active semi-participant as shown by active listening and providing some contribution to discussion. Pt shared connecting to group topic of self-care and helped the group discuss benefits of self-care. Benefits included; improved relationships, maintaining stability, less stress, increased self-esteem, and improved mood. Pt participated in the discussion of the common myths about self-care including self-care is selfish, just pampering, too much effort and time, and is self-indulgent. Shared feeling the media only markets self-care towards females which is disheartening. Pt participated in the discussion on debunking these myths. Seemed to benefit from increased awareness of the importance of self-care and challenging common myths that prevent practicing self-care. Discussed at times struggling to remind himself of the need and benefits of engaging in self-care. Able to identify this ultimately maintains anxiety and depression. Client showing progress AEB increased engagement and ability to connect with materials reviewed. Will continue IOP tx to promote gains, increase application of healthy coping and distress tolerance skills, as well as prevent decompensation. Narrative Note: []
--- NOTE | 2019-09-05 11:20 | BH.SGPN.GN ---
Behaviors/Verbalizations/Mental Status: []Client alert and oriented, casually dressed and groomed. Eye contact good. Motor activity appropriate. Speech within normal limits. Affect congruent, mood anxious, depressed. Thoughts linear, logical, no signs of hallucinations or delusions. Client Response/Progress/Benefit: []Client receptive of session, remaining an active participant. Pt actively listening and contributing some input to discussion. Participated in group activity and connected that maintaining self-care requires balancing life stressors and making oneself a priority. Willing to complete worksheet activity and helped the group identify various types of self-care activities. Client completed self-assessment activity on the different areas of self-care and was able to identify current practices he uses and identify areas he can improve upon. Client reported he can improve physical and emotional self-care area. Client set a goal to improve in this area by making an effort to eat at least once a day. Client appeared to benefit from increasing awareness of how he can improve self-care balance. Progress noted as shown by client?s ability to connect with materials and reports of reduced anxiety in the tx environment. Will continue IOP tx to promote mood stability, increase consistent use of coping skills, and improve overall functioning. Narrative Note: []
--- NOTE | 2019-09-08 09:05 | BH.SGPN.GN ---
Behaviors/Verbalizations/Mental Status: []Pt alert and orient x3. Eye contact good. Motor activity is appropriate. Appearance is casual. Speech is Appropriate. Mood is dysthymic, anxious. Affect is congruent. Thoughts are linear and logical. No evidence of psychosis. Reviewed daily check in sheet and pt reports score of 2/5 for suicidal ideations and 1/5 intent. This is typical to pt baseline, willing to meet individually for further assessment. Client Response/Progress/Benefit: []Pt responded well to session AEB pt listening attentively to others and willingness to share with the group. Pt reported current emotion as ?exhausted? and indicated this is due to doing better to prevent his anxious thoughts from escalating to panic. Pt did well to identify mental health wins. Indicating a mental health positive was completing the goal he had set for himself in goal setting group on Sunday. Expressed this is also his stressor as he didn?t find it to be particularly satisfying which he expressed was a stressor but did not want to share further. Continues to struggle with distorted thoughts impacting ability to make tx progress. Pt identified additional positive as being able to spend time with his siblings over the weekend and actually find time to connect. Shared feeling this was a positive experience. Pt progress in increased engagement and insight in treatment setting. Pt appearing to benefit from ongoing support provided by group. Pt recommended to continue IOP to increase healthy coping, challenge distorted thoughts, and prevent decompensation. Narrative Note: []
--- NOTE | 2019-09-10 09:03 | BH.SGPN.GN ---
Behaviors/Verbalizations/Mental Status: []Pt eye contact fair, casually dressed, motor activity appropriate, speech normal rate and tone, mood euthymic, congruent affect, thoughts linear and intact, no evidence of delusions or hallucinations. Reviewed client?s symptom tracker pt indicated a 2/5, with 5 being severe, for suicidal thoughts and a 1/5 for suicidal intention. This is pt's baseline for suicidal ideation and intent. Pt does not appear to be at imminent risk to harm self or others. Client Response/Progress/Benefit: []Pt responded well to session as evidenced by pt openly sharing thoughts and feelings and listening attentively to peers. Pt identified a mental health positive as not wanting to come to IOP today, but was able to get here despite those feelings. Pt stated he came today because he didn't want to have to call and cancel, which makes him anxious. Pt reported additional mental health positive as going to dinner with his mom without getting into an argument. Pt admitted he tends to struggle with keeping my mouth shut when with his mom which often results in conflict. Pt stated yesterday he worked on having a filter when with his mom. Pt stated his stressor is having to make several phone calls today which cause significant stress. Pt to continue IOP to increase healthy coping, challenge distorted thoughts and prevent decompensation. Narrative Note: []
--- NOTE | 2019-09-10 10:10 | BH.SGPN.GN ---
Behaviors/Verbalizations/Mental Status: []Client alert and oriented, casually dressed and groomed. Eye contact fair to good. Motor activity appropriate. Speech within normal limits. Affect constricted, mood anxious and dysthymic. Thoughts linear, logical, no signs of hallucinations or delusions. Client Response/Progress/Benefit: []Client an semi-active participant during group AEB client contributing some input to discussion, able to make some connections throughout. Client agreed with group that it is important to have a variety of social supports. Shared that it can be hard to utilize supports though. Client listened as the group brainstorm potential consequences of not having a support system and barriers to developing social supports, which included: feeling like a burden, not using internal skills, procrastinating, minimizing sx, and poor communication. Group identified benefits of social support as increased confidence, having someone to talk to, reducing overall responsibilities, less stress, and improved relationships. Pt took on an active role during activity, though began to struggle with maintaining motivation inspite of some setbacks. Appeared to benefit from gaining awareness of barriers that keep people from seeking social support as well as identifying the benefits of increasing support. Client progress noted in self-report of improved mood and engagement. Recommended continued IOP tx to prevent decompensation, continue to promote healthy skill application and thought challenging, and improve healthy social support outlets. Narrative Note: []
--- NOTE | 2019-09-10 11:10 | BH.SGPN.GN ---
Behaviors/Verbalizations/Mental Status: []Client alert and oriented, casually dressed and groomed. Eye contact good. Motor activity appropriate. Speech within normal limits. Affect flat, mood apathetic. Thoughts linear, logical, no signs of hallucinations or delusions. Client Response/Progress/Benefit: []client active participant AEB client listening to discussion and sharing daily goal. Client worked with the group to make connections between barriers faced in the challenge activity and strategies for managing these barriers with utilizing social supports in daily life. Client verbalized during the activity that he became frustrated and wanted to give up. Client participated in small group discussion about the different types of support and benefits different types of support can provide. Client identified he would like to increase his personal supports by reaching out to friends that he trusts. Client shared this will help client's wellbeing and help client be more open about his mental health symptoms. Client identified steps he can take to improve this support to be texting one friend he trusts today. Client reported finding support is complicated. Client seemed to benefit from identifying a type of support he would like to improve upon and identifying small steps to take. Progress noted as shown by client's increased connection with peers in IOP. Will continue IOP tx to prevent decompensation, maintain safety, and increase emotional regulation skills. Narrative Note: []
--- NOTE | 2019-09-11 10:41 | BH.MDN_ITS ---
Multi-Disciplinary Note - Note 45-min Individual Time Started:: 11:40 Date: 09/08/19 Purpose of session/treatment goals addressed:: The purpose of this session was to address current symptoms, stressors, and treatment goals. Another goal was to discuss barriers to small goal completion related to eating consistent meals. Other topics include self-image and distorted thinking patterns. Eye Contact:: Good Motor Activity:: Appropriate Appearance:: Casual Speech:: Appropriate Mood:: Anxious, Depressed Affect:: Other - incongruent - smiling as he discussed anxious thoughts and stressors. Thoughts:: Linear, Logical, No evidence of hallucinations/delusions noted Staff Interventions:: Therapist used active listening and open-ended questions to explore client's current stressors, symptoms, and treatment goal progress. Therapist responded empathically and used supportive feedback as pt discussed factors impacting self-esteem and body image. Provided psychoeducation on distorted thinking patterns and how they impact mental health. Therapist assiste d pt in challenging distortions as well as completing a cost/benefit analysis on maintaining current unhealthy eating habits. Client Response:: Client responded well to session, open to meeting with therapist. Client shared he had has been struggling with increased anxiety, as well as feelings of disgust towards self. Shared that he had completed his goal to eat regular meals throughout the weekend and that this is causing him to experience increased discomfort and thoughts of ?I?m going backwards?. Shared that he has struggled with his body image for much of his life and has never felt comfortable with himself. Shared he used to be teased by his friends and his father about being overweight and at times would not be allowed to eat if his father felt he had already consumed enough for the day. Shared this led to pt beginning to starve himself to the point of passing out approximately 2 years ago. Denies currently engaging in starvation behaviors but admits to often restricting his food intake to eating 1-2 small meals a day. Reports weighing himself daily to ensure he has not gained weight as well, and has begun isolating in the last year to avoid having to eat in front of others. Pt expressed insight into use of distorted thought patterns related to thoughts about food and fears of gaining weight. Expressed beliefs that his fears additionally stem from not feeling comfortable in his own skin when he was forced to live as female. Shared that gaining weight makes him fear he will begin to look more feminine. Willing to work with therapist on beginning to identify and challenge distorted thoughts as well as begin reviewing the potential consequences of these thoughts on his mental and physical health. Indicates awareness that current thought patterns reinforce his anxiety and self-deprecation, as well as prevents making progress. Shared openness to begin identifying qualities about himself he likes outside of physical appearance. Receptive of resources for addressing problematic eating. Risks/Concerns:: Client denies any suicidal ideations, plan, or intent as of 09/08/19. Protective factors include his mother and desire to get better. Reports problematic eating patterns via restricting and starvation. Pt denies actively engaging in starvation behavior and reports eating atleast 1-2x daily. Will consult psychiatry, provide resources, and continue to monitor for increased sx severity. Progress Toward Goals/Plan:: Client appears to be responding well to treatment and making some progress towards treatment goals of reducing social anxiety AEB engaging in group tx setting. Client reports ongoing apathy about life but is doing well to consistently attend IOP tx. He reports negative and self- deprecation that impacts thoughts of self and reinforce depression and anxiety. Continues to struggle with lack of motivation, poor communication with supports, and distorted thinking leading to toxic coping behaviors. Pt continue IOP tx to promote mood stability and increase emotional regulation. Time Stopped:: 12:20
== END 2019-09-13 23:59 ==
LOC: BHIOP 09:00
PROVIDERS: PCP Pediatrics; Referring Provider Psychiatry & Neurology Psychiatry; Visit Provider Psychiatry & Neurology Psychiatry
DX: F31.81 Bipolar II disorder (principal); F41.1 Generalized anxiety disorder; F64.8 Other gender identity disorders; N91.2 Amenorrhea, unspecified; R53.82 Chronic fatigue, unspecified; Z79.899 Other long term (current) drug therapy; F17.210 Nicotine dependence, cigarettes, uncomplicated
CPT/HCPCS: 90792; H0035; H2012; H2020; T1002; 90832; 90834

== ENCOUNTER 2019-09-04 17:56 | Emergency (ER) | payer MEDICAID, SELFPAY ==
[2019-09-04 17:57] VITALS: BP 117/92; PULSE 104; RESP 16; TEMP 36.9; O2SAT 100; BMI 27.3
--- NOTE | 2019-09-04 18:11 | ED.VIS.GEN ---
History of Present Illness Chief Complaint: Allergic Reaction Informant: Patient Onset: Today Context: Sudden Onset Timing: Continuous Current Severity: Moderate Maximum Severity: Moderate Narrative: The patient presents to the emergency department with concern for allergic reaction. The patient is a by history of bipolar disorder. She was just out of the Lamictal today. She states she took 1 dose and began to have throat pain and felt like her throat was swelling. She denies any rash. She has had a similar reaction to Risperdal in the past. She presented here immediately. She denies any nausea or vomiting. She denies any fevers or chills. Prior similar symptoms: No Recent Illness/Hospitalization: No Past Medical History - Allergies and Home Meds Allergies/Adverse Reactions: Allergies lamotrigine [From Lamictal] Allergy (Verified 09/04/19 18:03) Anaphylaxis ANTIPSYCHOTIC Allergy (Uncoded 07/18/19 11:59) Angioedema Primary Care Physician: Alma Arcos MD [Primary Care Provider] - Prior records reviewed: Yes Past Medical History: - - Bipolar disorder Surgical History: noncontributory Smoking Status: Former smoker Review of Systems General: Denies: Chills, Fever, Sweats Eyes: Denies: Visual changes - bilaterally, Diplopia ENT: Denies: Rhinorrhea, Sore throat Cardiovascular: Denies: Chest pain, Palpitations Respiratory: Denies: Dyspnea, Cough, Dyspnea on exertion Gastrointestinal: Denies: Abdominal pain, Nausea, Vomiting, Diarrhea, Melena, Hematochezia Genitourinary: Denies: Dysuria, Hematuria, Frequency Musculoskeletal: Denies: Back pain, Extremity Pain Skin: Denies: Rash, Wounds Neurological: Denies: Headache, Weakness, Numbness Physical Exam Vital Signs/Narrative: Vital Signs Temp Pulse Resp BP Pulse Ox 09/04/19 17:57 98.5 F 104 H 16 117/92 H 100 Inital Vital Signs reviewed: Yes General: Well nourished, Well developed, No Acute Distress Head: Normocephalic, Atraumatic Eyes: Perrl, EOMI ENT: Moist mucous membranes, No rhinorrhea Neck: Supple, Nontender Cardiovascular: Regular rate, Regular rhythm, No murmurs Respiratory: No distress, CTA bilaterally, Chest nontender Abdomen: Soft, Nontender, Nondistended, Normal bowel sounds Back: Nontender, Normal Inspection Extremities: Nontender, No edema Skin: Normal color, No rash Neurological: Alert, Oriented x3, Cranial nerves II-XII grossly intact, Normal Strength, Normal Sensation Psychological: Normal affect, Normal Mood Diagnostic/Tx/Re-eval - Medical Decision Making The patient states he had posterior throat pain after taking Lamictal. There was no lesions. There is no conjunctival injection. There is no skin rash or sloughing. Really do not suspect Crenshaw-Edward. I do feel this is a mild drug reaction. The patient was treated with Solu-Medrol, Pepcid, and Benadryl. On reevaluation, he is feeling improved. There is no evidence of anaphylaxis or angioedema. I will continue a steroid burst to prevent any rebound. The patient is comfortable with this plan of care will be discharged home. Impression 1. Allergic reaction to drug ED Disposition - Plan for ED Patient: Instructions: ALLERGIC REACTION, Drug Prescriptions: Prednisone [Deltasone] 40 mg PO DAILY #10 tab Prescription Printed Referrals: Alma Arcos MD [Primary Care Provider] -
[2019-09-04] MEDS: DiphenhydrAMINE 50 MG/ML Syringe IV (18:32)
[2019-09-04] MEDS: 0.9% Normal Saline 1,000 ML 1000 ML IV (18:32)
[2019-09-04] MEDS: MethylPREDNISolone 125 MG/2 ML Vial IV (18:32)
[2019-09-04] MEDS: Famotidine 200 MG/20 ML MDV 20 MG in 0.9% Normal Saline (Pres. free 8 ML 300 MG IV (19:22)
[2019-09-04 19:51] VITALS: BP 108/68; PULSE 85; RESP 17; O2SAT 100
== END 2019-09-04 19:53 | disposition home or self-care (01) ==
LOC: ED 18:13
PROVIDERS: Emergency Provider Emergency Medicine; PCP Pediatrics
DX: R07.0 Pain in throat (principal); T42.6X5A Adverse effect of other antiepileptic and sedative-hypnotic drugs, initial encounter; F31.9 Bipolar disorder, unspecified; Z87.891 Personal history of nicotine dependence
CPT/HCPCS: 96361; 96365; 96375; 99284; J7030; A4216; J3490

== ENCOUNTER 2019-09-15 09:00 | Outpatient (RCR) | payer MEDICAID, SELFPAY ==
[2019-09-14 01:08] VITALS: BP 102/62; PULSE 80; RESP 16; TEMP 36.8
--- NOTE | 2019-09-15 09:00 | BH.SGPN.GN ---
Behaviors/Verbalizations/Mental Status: [] Eye contact is good. Motor activity is appropriate. Appearance is casual. Speech is appropriate. Mood is depressed. Affect is flat. Thoughts are linear and logical. No evidence of psychosis. Reviewed daily check in sheet and pt reports 2/5 for suicidal thoughts and 2/5 for intent. Will check-in with patient after group. Client Response/Progress/Benefit: [] Pt participated when prompted. Daily symptom notes 4/5 for hopelessness and agitation, 3/5 for anxiety and panic. Pt shared briefly and was vague. Notes struggles with medical issues and health stuff. Stated that he has been off certain medications for the past week due to an issue with his birthday and his insurance. Did not share this with staff. Feels tired and overwhelmed. Was able to identify a mental health win stating that he talked with his father with whom he has a conflicted relationship, and things weren't horrible. Some progress noted per pt. Will continue in IOP to maintain safety, prevent decompensation, and increase health coping. Narrative Note: []
--- NOTE | 2019-09-15 10:20 | BH.SGPN.GN ---
Behaviors/Verbalizations/Mental Status: []Eye contact is good. Motor activity is appropriate. Appearance is casual. Speech is Appropriate. Mood is dysthymic and anxious. Affect is congruent. Thoughts are linear and logical. No evidence of psychosis. Client Response/Progress/Benefit: []Participated throughout group discussion, providing some input and listening actively. Engaged during psychoeducation portion reviewing fixed mindset. Reported relating to examples of fixed mindset thoughts and nodded as others discussed their own experiences. Pt worked with group to identify how a fixed mindset can impact our mental health which included: decreased hope, giving up when faced with a setback, not asking for help, low self-esteem, and isolation/avoidance. Pt identified one fixed thought he has and wrote it down, however opted not to share with the group. Recognized that this fixed thought continues to maintain depression and anxiety. Benefited from group by increasing awareness of how one's mindset impacts mental health. Pt to continue IOP level of care to increase utilization of healthy coping skills, challenge distorted thoughts, and prevent decompensation. Narrative Note: []
--- NOTE | 2019-09-15 11:25 | BH.SGPN.GN ---
Behaviors/Verbalizations/Mental Status: []Pt eye contact fair, casually dressed, motor activity appropriate, speech normal rate and tone, mood anxious, constricted affect, thoughts linear and intact, no evidence of delusions or hallucinations. Client Response/Progress/Benefit: []Client passive participant as evidenced by pt providing limited input throughout session. Client applied cognitive restructuring to reframe previously identified fixed thoughts, transforming his fixed thought from previous group to a growth thought. Client elected to not share his growth thought with the group. Client connected with others that fixed thoughts have kept him from new opportunities and led to self-sabotage. Client participated as the group brainstormed strategies to promote growth-mindset thinking. Benefitted from discussing benefits of growth mindset and brainstorming strategies for prompting growth-mindset. Will continue IOP tx to increase healthy coping, improve emotional regulation and prevent decompensation. Narrative Note: []
--- NOTE | 2019-09-15 12:31 | BH.COMM ---
Communication Note - Communication with Client Communication Note: Met with pt to provide risk assessment as he noted 2/2 for suicidal thoughts and intent on daily symptom tracker. Denies active suicidal toughts or intent. He reports that he does not want to just to disappear. Reports increased thoughts and urges to disappear or get way due to stressful weekend. Does not present as imminent danger to self. Smiling. Future-oriented.
--- NOTE | 2019-09-17 09:05 | BH.SGPN.GN ---
Behaviors/Verbalizations/Mental Status: [] Eye contact is good. Motor activity is appropriate. Appearance is neat. Speech is appropriate. Mood is depressed. Affect is flat. Thoughts are linear and logical. Tearful. No evidence of psychosis. Reviewed daily check in sheet and pt reports 1/5 for suicidal thoughts and 1/5 for intent. This is pt's baseline. Client Response/Progress/Benefit: [] Pt participated at times during the group discussion. Daily symptom tracker notes3/5 for anxiety, panic, and agitation. 2/5 for hopelessness. Shared mental health wins which included completed some art projects and communicating effectively with support. otes improved relationship with mom and decreased conflict. Ruminating on some health issues which he did not elaborate on however these have been consistent concern. Health anxiety. Fairly engaged during group discussion. Attentive. Progress noted per pt report. Benefited from group support, encouragement, and feedback. Will continue in IOP to maintain safety, prevent decompensation, and increase healthy coping skills. Narrative Note: []
--- NOTE | 2019-09-17 10:15 | BH.SGPN.GN ---
Behaviors/Verbalizations/Mental Status: []Pt eye contact good, casually dressed, motor activity appropriate, speech normal rate and tone, mood euthymic, congruent affect, thoughts linear and intact, no evidence of delusions or hallucinations. Client Response/Progress/Benefit: []Client responded well to session, engaged in activity and actively listening as well as providing input to discussion. Engaged in activity about facts and statistics of mental illness. Group connected with the mental health statistics, recognizing the prevalence of mental health. Group brainstormed strategies to combat social and perceived stigma which included: educating others, no longer using negative labels about mental illness, being open about mental health, and not using deflection like humor or joking to minimize symptoms. Client reported he often uses humor and joking as a way to deflect how he is actually feeling. Client stated he will will practice being more open with others about his mental health in an effort to reduce social and perceived mental health stigma. Appeared to benefit from increasing awareness of strategies to combat stigma. Will continue IOP tx to increase healthy coping skills, challenge distorted thoughts, and prevent decompensation. Narrative Note: []
--- NOTE | 2019-09-17 11:48 | PCM.BH.PN_ITS ---
Progress Note Progress Note: History of Present Illness/Interim History: [] The patient is a 18-year-old single transgender male (born a female) who is seen in follow-up at the [facility] IOP program. I last saw the patient about 2 weeks ago. At that time we had discontinued the evening Wellbutrin XL dose. The patient states that she has much better sleep since the medication changes. She says she feels her anxiety has improved also. She is feeling more positive lately and enjoying the IOP program. She still does complain of getting angry at times which is not the usual for her. She still having panic attacks but she is learning skills at the IOP program to abort these panic attacks. She has less passive thoughts that she wants to discuss that he wants to disappear. He denies any suicidal ideation whatsoever. He denies any urges to self-harm and has not done any cutting since I saw him last. The patient had been started on Lamictal several weeks ago by me but was allergic to this and so this was discontinued. She also reports that the allergy she was not sure of last visit is is an allergy to Risperdal. The patient denies any other psychiatric symptoms. Current Psychiatric Medications: [] Wellbutrin XL 300 mg p.o. every morning; Ativan 1 mg, 1 p.o. as needed (only takes about once a month). Patient is also on testosterone shots once a month. Mental Status Examination: [] Patient is a 18-year-old transgender male who appears normal for stated age and appears somewhat masculinized. Patient is dressed as a young male. The patient has no psychomotor agitation or retardation. Eye contact is good and speech is normal rate and rhythm and fluent with no pressure. The voices lower than the normal female range. Mood is depressed but less than before. Affect is full and normal. Thought processes goal-directed and organized. Thought content: There is evidence of still some passive thoughts that he would not care if he disappeared. There is no evidence of urges to self-harm, suicidal ideation, homicidal ideation, hallucinations or delusions. No evidence of diann symptoms. Judgment is intact. Impulsivity low to moderate. Insight: Some present. Diagnoses: [] [place] I: [] Bipolar 2 disorder, most recent episode depressed; generalized anxiety disorder; gender identity disorder [place] II: [] Cluster B traits [place] III: [] Amenorrhea, chronic fatigue syndrome [place] IV:[]] Primary support and work issues Plan: [] The patient will continue the IOP program at [facility] as the structure, support, education, individual and group therapy will hopefully prevent worsening of the patient's symptoms which might require hospitalization. The patient felt safe during the interview and if at any time he does not feel safe he will let us know at the IOP program or go to the emergency room. The risk, options, possible complications and side effects of the medication were discussed with the patient and he understands and accepts these. Long discussion was had about medication options. The patient agrees to start Latuda 40 mg p.o. at dinner in the evening with food. The patient understands that if he does not take it with food will not be absorbed. This is given as treatment for the patient's bipolar depression and mood stabilizer affect. I will see the patient in 2 weeks in the face patient will continue to follow-up with outpatient psychiatric and medical providers. We will add to the record that the patient is allergic to Lamictal and Risperdal.
--- NOTE | 2019-09-19 08:31 | BH.MDN ---
Multi-Disciplinary Note - Note 45-min Individual Time Started:: 09:34 Date: 09/19/19 Purpose of session/treatment goals addressed:: Purpose of session was to assess pt's current symptoms and stressors. Other topics included: identifying progress, challenging distorted thoughts, and reviewing boundary setting strategies. Eye Contact:: Good Motor Activity:: Appropriate Appearance:: Casual Speech:: Appropriate Mood:: Anxious, Dysthymic Affect:: Other - incongruent. Pt smiling and laughing as he discussed anxiety and concerns with toxic supports Thoughts:: Linear, Logical, No evidence of hallucinations/delusions noted Staff Interventions:: Therapist used open ended questions to elicit pt's current symptoms and stressors. Therapist elicited information on pt's perception of progress in the past week. Therapist assisted pt with challenging distorted thinking patterns. Therapist provided empathic responses and supportive feedback as pt discussed current interpersonal stressors. Reviewed strategies for healthy boundary setting and effective communication with supports, as well as discussed consequences of not setting firm boundaries on mental health. Client Response:: Pt reported he is feeling up and down this morning, as his past week has been a mixture of ?happy and sad?. Pt stated overall she has been feeling less anxious and depressed and has made progress with reducing isolative behaviors. Pt indicated that in the past week barrera has been spending more time with a core group of friends he has online and is discussing his mental health and tx progress with a close online friend whom is supportive as well. Discussed feeling less depressed as a result and is spending more time engaging in activities he has enjoyed in the past, such as videogames. Pt expressed that although this is progress, he is worried about increased stress in the social media environment. Pt went on to describe issues with one of his online friends bullying him ?for no reason?. Discussed making past attempts to talk with the individual as well as attempting to ask for support from a friend in the past without success. Shared that he has attempted to set boundaries online by restricting the individual?s access to pt?s social media accounts. Pt indicated that he continues to encounter negative comments when playing online games with friends as this individual is often in the game chat as well. Pt reports that this is negatively impacting his mental health by increasing anxiety and irritability. Shared that past difficulties in discussing his concerns with his friends has created reluctance in attempting to reach out for support now. Expressed a desire to cut ties with all friends as a result. Pt was able to work with therapist on challenging all or nothing thoughts and discussing additional ways of establishing healthy boundaries online. Reviewed pros/cons of reaching out for support from others and pt noted that having support may reduce anxiety and improve overall mood. Pt ultimately expressed plans to reach out to a friend regarding concerns this afternoon. Risks/Concerns:: Denies current suicidal ideation, plan or intention to date. Progress Toward Goals/Plan:: Progress noted with pt reporting no suicidal ideation on this date, increased socialization, improved use of healthy coping skills, and increased ability to identify distorted thought patterns. Pt continues to report struggling with negative thought patterns impacting mental health and maintaining depression and anxiety. Continues to struggle with reaching out to in-person supports; however, reports openness to having a family session with his mother regarding ways she can aid in supporting pt mental health and tx progress. Pt to continue IOP tx to continue to improve use of healthy coping skills, challenge distorted thoughts and prevent decompensation. Time Stopped:: 10:10
--- NOTE | 2019-09-19 10:08 | BH.SGPN.GN ---
Behaviors/Verbalizations/Mental Status: []Client alert and oriented, casually dressed and groomed. Eye contact good. Motor activity appropriate. Speech within normal limits, quiet. Affect constricted, mood anxious and dysthymic. Thoughts linear, logical, no signs of hallucinations or delusions. Client Response/Progress/Benefit: []Client responded well to session and contributed to discussion, reported connecting to idea that we control our response to life?s events. Client shared difficulties in remembering this when feeling overwhelmed or depressed. Connected with the group topic of crisis and did well to work with group to define crisis. Group identified examples of potential crisis to include loss of a loved one, relationship problems, divorce, job loss, and medical problems. Client agreed with peers that anything can lead to a crisis. Connected with discussion on how coping with external crisis by using unhealthy coping skills could result personal crisis. Group identified unhealthy coping skills to include; using substances, sleep, avoidance/isolation, anger outbursts, suicidal thoughts, and self-harm. Group reported that it is important to have awareness of warning signs in order to prevent crisis. Group identified warning signs for crisis and Client completed the personal warning signs worksheet. Identified crisis warning signs to include; increased negative thoughts, not eating, and pushing others away. Benefited from group by increasing awareness of crisis and personal warning signs. Progress noted in client?s improved insight and engagement. Will continue IOP tx to improve application of skills learned, prevent decompensation, and reduce mental health sx. Narrative Note: []
--- NOTE | 2019-09-19 11:05 | BH.SGPN.GN ---
Behaviors/Verbalizations/Mental Status: []Pt eye contact good, casually dressed, motor activity appropriate, speech normal rate and tone, mood euthymic, congruent affect, thoughts linear and intact, no evidence of delusions or hallucinations. Client Response/Progress/Benefit: []Client responded well to session as evidenced by client listening attentively to others and providing input throughout session. Client identified his warning signs for crisis and gained further awareness of earliest warning signs. Client appeared to connect that awareness of these warning signs can prevent further crisis and help client utilize healthy coping skills to break the cycle. Client created a crisis action plan to help client better manage warning signs for crisis. Client?s plan included: challenging distorted thoughts, grateful log, force self to be around others, reaching out to supports, and making plans with supports. Client created crisis survival kit by choosing various tangible items that remind him of various skills from crisis intervention plan. Client appeared to benefit from creating a crisis action plan and increasing self-awareness. Client to continue IOP to prevent decompensation, continue use of healthy coping, and challenge negative thoughts. Narrative Note: []
--- NOTE | 2019-09-22 09:00 | BH.SGPN.GN ---
Behaviors/Verbalizations/Mental Status: [] Eye contact is good. Motor activity is appropriate. Appearance is neat. Speech is Appropriate. Mood is depressed. Affect is flat. Thoughts are linear and logical. No evidence of psychosis. Reviewed daily check in sheet and pt reports 1/5 for suicidal thoughts and 1/5 for intent. This is baseline and thoughts are passive in nature. Client Response/Progress/Benefit: [] Pt participated at times during group discussion. Emotion for today is hot mess. Could not identify any mental health wins over the weekend. Notes worsening medical issues reporting migraines and stomach pain. Pt reports that these somatic symptoms increase his health anxiety identifying a cycle of anxiety and depression. Decreased sleep. Went out to lunch with his bio-father which was a disaster. Did not elaborate except to say I keep expecting him to change. No progress noted. Group provided support, encouragement, and some feedback. Pt struggles with utilizing skills when depressed and anxious. Will continue in IOP to maintain safety, prevent decompensation, increase healthy coping, and improve functioning. Narrative Note: []
--- NOTE | 2019-09-22 10:05 | BH.SGPN.GN ---
Behaviors/Verbalizations/Mental Status: []Pt eye contact good, casually dressed, motor activity appropriate, speech normal rate and tone, mood anxious, congruent affect, thoughts linear and intact, no evidence of delusions or hallucinations. Client Response/Progress/Benefit: []Pt passive participant throughout session AEB pt not providing input, but did appear to listen attentively to peers comments. Pt seemed to connect with group comments that we can control how we cope with stressors. Group identified unhealthy coping skills which included: substance use, avoidance, sleep, isolation, and suicidal behavior. Group worked together to identify potential barriers of using healthy coping which included: no motivation, apathy, comfort zone, habitual, learned behaviors and fear. Pt seemed to benefit from increased awareness of importance of increasing healthy coping skills and consequences of utilizing unhealthy coping skills. Pt to continue IOP level of care to increase utilization of healthy coping, challenge negative thought patterns, and prevent decompensation. Narrative Note: []
--- NOTE | 2019-09-22 11:20 | BH.SGPN.GN ---
Behaviors/Verbalizations/Mental Status: []Client alert and oriented, casually dressed and groomed. Eye contact good. Motor activity appropriate. Speech within normal limits. Affect congruent, mood anxious, dysthymic. Thoughts linear, logical, no signs of hallucinations or delusions. Client Response/Progress/Benefit: []Client responded well to session, taking notes and engaged during discussion, more input than usual. Client appeared to connect with the activity from second group and listened as the group worked to identify benefits of having a strong foundation of internal and external coping skills. Client actively contributing as the group discussed the different categories of coping skills which included distraction, emotional release, grounding, self-love, and thought challenging. Client acknowledged the importance to having a variety of coping skills. Client created a coping skills ?menu? for the five categories of coping skills. Provided examples of strategies he personally uses for thought challenging. Client expressed wanting to focus on improving more actively engaging in consistent application of self-love and health distraction skills this week. Client appeared to benefit from increasing repertoire of healthy coping skills. Client progressing as shown by report of improved mood management and use of thought challenging, continues to struggle with significant thought distortions. Will continue IOP tx to prevent decompensation, improve mood stability, and promote healthy change behaviors. Narrative Note: []
--- NOTE | 2019-09-26 08:31 | BH.COMM ---
Communication Note - Communication with Client Communication Note: Pt scheduled for IOP group and individual sessions on this date however canceled due to medical issues. Reports plans to attend scheduled doctor's appointment on this date. Plans to attend group as scheduled on 09/29/19.
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
== END 2019-10-14 23:59 ==
LOC: BHIOP 09:00
PROVIDERS: PCP Pediatrics; Referring Provider Psychiatry & Neurology Psychiatry; Visit Provider Psychiatry & Neurology Psychiatry
DX: F31.81 Bipolar II disorder (principal); F41.1 Generalized anxiety disorder; Z79.899 Other long term (current) drug therapy; F64.0 Transsexualism; N91.2 Amenorrhea, unspecified; G89.4 Chronic pain syndrome
CPT/HCPCS: 99214; H0035; H2012; H2020; 90832

== ENCOUNTER 2019-09-25 19:03 | Emergency (ER) | payer MEDICAID, SELFPAY ==
[2019-09-25 19:04] VITALS: BP 125/86; PULSE 90; RESP 16; TEMP 36.7; O2SAT 99; BMI 27.4
--- NOTE | 2019-09-25 19:19 | CT_ITS ---
STUDY: CT ABDOMEN AND PELVIS WITHOUT CONTRAST REASON FOR EXAM: Female, 18 years old. LEFT FLANK PAIN RADIATES TO LOWER ABD RADIATION DOSAGE (If Supplied By Facility): CTDIvol = ( 7.35 ) mGy, DLP = ( 387.47 ) mGycm TECHNIQUE: Transaxial images were obtained from the dome of the diaphragm to the symphysis pubis without oral contrast, and without intravenous contrast. Sagittal and coronal images were reconstructed. Individualized dose optimization techniques were used for this CT. COMPARISON: Prior abdomen and pelvic CT exam of July 04, 2019 FINDINGS: The visualized lung bases are unremarkable. The visualized portions of the heart are within normal limits. Normal liver. Normal gallbladder and extrahepatic biliary system. Normal spleen. Normal pancreas. Normal bilateral adrenal glands. There are 2 nonobstructing 1 mm stones in the lower pole of the right kidney without hydronephrosis or ureteral stones. Normal left kidney without hydronephrosis or stones. Normal visualized stomach. Normal small intestine. Normal colon. The appendix is visualized and appears normal. Normal abdominal aorta. Normal inferior vena cava. Normal retroperitoneum. Nondistended urinary bladder. Negative for pelvic mass or free fluid of the pelvis. Normal abdominal wall. Normal osseous structures. CT/Abdomen/Pelvis without Cont IMPRESSION: Normal left kidney without hydronephrosis or stones. Normal size of the right kidney with 2 nonobstructing 1 mm stones in the lower pole without hydronephrosis or ureteral stones. No other acute abdominal or pelvic findings. Electronically Signed: Sindhu Laguerre MD at 20:30 EDT , Service support ,
--- NOTE | 2019-09-25 19:20 | ED.DCSUM_ITS ---
History of Present Illness Chief Complaint: Flank Pain Informant: Patient Onset: Days Context: Gradual Onset Current Severity: Moderate Maximum Severity: Moderate Narrative: Patient presents with a history of stomach problems. She reportedly has been on magnesium citrate or MiraLAX to help with constipation. She states symptoms got worse again last Sunday. She has pain in the bilateral groin region that she describes as a burning sensation. She reports a constant hunger feeling in her lower abdomen and pain wraps around to the flank regions bilaterally. She does report being told she is a history of kidney stones. Patient is a female to male transgender. She has had no prior abdominal surgeries. - Past Medical History (1) Bipolar disorder Status: Chronic Past Medical History - Allergies and Home Meds Allergies/Adverse Reactions: Allergies lamotrigine [From Lamictal] Allergy (Verified 09/25/19 19:06) Anaphylaxis risperidone Allergy (Verified 09/25/19 19:06) Angioedema Primary Care Physician: Alma Arcos MD [Primary Care Provider] - Prior records reviewed: Yes Surgical History: noncontributory Lives: With Family Smoking Status: Former smoker Review of Systems General: Denies: Chills, Fever Eyes: Denies: Visual changes - bilaterally ENT: Denies: Bilateral ear pain Cardiovascular: Denies: Chest pain Respiratory: Denies: Dyspnea, Cough Gastrointestinal: Reports: Abdominal pain, Nausea, Constipation. Denies: Vomiting Genitourinary: Denies: Dysuria Musculoskeletal: Denies: Extremity Pain Skin: Denies: Rash Neurological: Denies: Headache Allergy: Denies: Uticaria Physical Exam Vital Signs/Narrative: Vital Signs Temp Pulse Resp BP Pulse Ox 09/25/19 19:04 98.0 F 90 16 125/86 H 99 Inital Vital Signs reviewed: Yes General: Well nourished, Well developed Head: Normocephalic ENT: Moist mucous membranes Neck: Supple Cardiovascular: Regular rate, Regular rhythm Respiratory: No distress, CTA bilaterally Abdomen: Soft, Tender - Mild lower abdominal tenderness., Hypoactive bowel sounds. Negative for: Guarding, Rebound tenderness Back: Negative for: CVA tenderness Skin: Normal color Neurological: Alert, Oriented x3 Psychological: Normal affect Diagnostic/Tx/Re-eval Impressions Abdomen/Pelvis CT 09/25/19 19:19 IMPRESSION: Normal left kidney without hydronephrosis or stones. Normal size of the right kidney with 2 nonobstructing 1 mm stones in the lower pole without hydronephrosis or ureteral stones. No other acute abdominal or pelvic findings. Electronically Signed: Sindhu Laguerre MD at 20:30 EDT , Service support , 09/25/19 19:19 Abdomen/Pelvis without Cont [CT] Stat Laboratory Results 09/25/19 09/25/19 09/25/19 19:41 19:41 20:07 WBC 9.3 RBC 5.20 Hgb 14.2 Hct 44.1 MCV 84.8 MCH 27.3 MCHC 32.2 RDW Std Deviation 41.1 RDW Coeff of Tomi 13.2 Plt Count 380 MPV 8.8 Immature Gran % (Auto) 0.600 Neut % (Auto) 75.0 H Lymph % (Auto) 14.3 L [place] % (Auto) 9.2 Eos % (Auto) 0.5 Baso % (Auto) 0.4 Absolute Neuts (auto) 7.0 Absolute Lymphs (auto) 1.33 Nucleated RBC % 0 Sodium 142 Potassium 3.3 L Chloride 109 H Carbon Dioxide 25.0 Anion Gap 8 BUN 6 L Creatinine 1.01 Estim Creat Clear Calc 83.87 Est GFR (MDRD) Af Amer 90 Est GFR (MDRD) Non-Af 74 BUN/Creatinine Ratio 5.9 L Glucose 85 Calcium 8.9 Urine Color Yellow Urine Clarity Sl. Cloudy Urine pH 7.0 Ur Specific [place] 1.010 Urine Protein Negative Urine Glucose (UA) Normal Urine Ketones Negative Urine Occult Blood Negative Urine Nitrite Negative Urine Bilirubin Negative Urine Urobilinogen Normal Ur Leukocyte Esterase 100 H Urine RBC 0 SEEN Urine WBC 0-5 SEEN Ur Squamous Epith Cells 0-5 SEEN Urine Bacteria RARE Urine Mucus 0 SEEN - Medical Decision Making She was given Toradol, Zofran, IV fluids. On repeat evaluation patient has no complaints. She will follow-up with her specialist at [facility] as scheduled if not sooner. ED Disposition - Plan for ED Patient: Disposition: Home or Assisted Living Diagnosis: Abdominal pain Instructions: FLANK PAIN, Uncertain Cause Referrals: Alma Arcos MD [Primary Care Provider] -
[2019-09-25 19:50] LABS: Absolute Lymphocyte Count 1.33 X10^3/uL (0.83-4.51); Basophil# 0.04 X10^3/uL; Basophil% 0.4 % (0-1); Eosinophil# 0.05 X10^3/uL; Eosinophils% 0.5 % (0-5); Hematocrit 44.1 % (37-47); Hemoglobin 14.2 g/dL (12.0-15.0); Lymphocyte # 1.33 X10^3/ul (4.0); Lymphocyte % 14.3 % (19-41); Mean Corp Hgb Conc 32.2 g/dL (32-36); Mean Corpuscular Hgb 27.3 pg (27.0-32.0); Mean Corpuscular Volume 84.8 fL (81-99); Mean Platelet Vol. 8.8 fl (6.2-12.0); Monocyte# 0.85 X10^3/uL; Monocyte% 9.2 % (0-10); NRBC Flagged by Analyzer 0 % (0-5); Neutrophil # 6.95 X10^3/uL (2.7-7.7); Platelet Count 380 K/mm3 (150-450); RBC Distribution Width CV 13.2 % (11.6-14.6); RBC Distribution Width SD 41.1 fl (35.1-43.9); White Blood Count 9.3 K/mm3 (4.4-11.0)
[2019-09-25] MEDS: 0.9% Normal Saline 1,000 ML 150 ML IV (19:57)
[2019-09-25] MEDS: Ondansetron 4 MG/2 ML Vial IV (19:59)
[2019-09-25] MEDS: Ketorolac 30 MG/ML Syringe IV (19:59)
[2019-09-25 20:04] LABS: Anion Gap 8 (5-15); BUN 6 mg/dL (7-18); BUN/Creat Ratio 5.9 RATIO (10-20); Calcium,Total 8.9 mg/dL (8.5-10.1); Chloride 109 mmol/L (98-107); Creatinine, Serum 1.01 mg/dL (0.55-1.02); EST Glomerular Filtration Rate 74 mL/min (>60); Est Glom Filt Rate - Afr Amer 90 mL/min (>60); Estimated Creatinine Clearance 83.87 ml/min; Glucose 85 mg/dL (74-106); Potassium 3.3 mmol/L (3.5-5.1); Sodium Level 142 mmol/L (136-145)
[2019-09-25 20:12] LABS: Mucous, Urine 0 SEEN /hpf (<or=2+); Red Blood Cells-Urine 0 SEEN /hpf (0-5)
[2019-09-25 20:16] LABS: Color, Urine Yellow (Yellow); Glucose, Dipstick Normal (Normal); Ketone-Dipstick Negative (Negative); Leukocyte Esterase-Dipstick 100 /ul (Negative); Nitrite-Dipstick Negative (Negative); Occult Blood-Urine Negative /ul (Negative); Protein-Dipstick Negative (Negative); Urine Bilirubin Dipstick Negative (Negative); Urine Clarity Sl. Cloudy (Clear); Urine Urobilinogen Normal (Normal)
[2019-09-25 20:31] LABS: Bacteria RARE /hpf (None Seen); Squamous Epithelial Cells - UA 0-5 SEEN /hpf (5-10); White Blood Cells 0-5 SEEN /hpf (0-5)
== END 2019-09-25 21:14 | disposition home or self-care (01) ==
PROVIDERS: Emergency Provider Emergency Medicine; PCP Pediatrics
DX: R10.9 Unspecified abdominal pain (principal); N20.0 Calculus of kidney; Z87.442 Personal history of urinary calculi; F31.9 Bipolar disorder, unspecified; Z79.899 Other long term (current) drug therapy; Z87.891 Personal history of nicotine dependence
CPT/HCPCS: 74176; 80048; 81001; 85025; 96361; 96374; 96375; 99283; J7030; A4216; J2405

== ENCOUNTER → 2019-11-10 | Outpatient (CLI) | payer MEDICAID, SELFPAY ==
[2019-11-10 13:00] LABS: Absolute Lymphocyte Count 1.53 X10^3/uL (0.83-4.51); Absolute Neutrophil Count 5.9 X10^3/uL (2.0-7.7); Basophil# 0.05 X10^3/uL; Basophil% 0.6 % (0-1); Eosinophil# 0.09 X10^3/uL; Eosinophils% 1.1 % (0-5); Hematocrit 45.1 % (37-47); Hemoglobin 14.8 g/dL (12.0-15.0); Lymphocyte # 1.53 X10^3/ul (4.0); Lymphocyte % 18.4 % (19-41); Mean Corp Hgb Conc 32.8 g/dL (32-36); Mean Corpuscular Hgb 27.5 pg (27.0-32.0); Mean Corpuscular Volume 83.7 fL (81-99); Mean Platelet Vol. 9.3 fl (6.2-12.0); Monocyte# 0.69 X10^3/uL; Monocyte% 8.3 % (0-10); NRBC Flagged by Analyzer 0 % (0-5); Neutrophil # 5.89 X10^3/uL (2.7-7.7); Neutrophil % 70.6 % (47-70); Platelet Count 401 K/mm3 (150-450); RBC Distribution Width CV 13.2 % (11.6-14.6); RBC Distribution Width SD 40.3 fl (35.1-43.9); Red Blood Count 5.39 M/mm3 (4.2-5.4); White Blood Count 8.3 K/mm3 (4.4-11.0)
[2019-11-10 13:34] LABS: T4 Free Direct 1.06 ng/dL (0.76-1.46); Thyroid Stim Hormone (TSH) 1.21 uIU/mL (0.358-3.74)
[2019-11-11 16:07] LABS: Endomysial Antibody IgA Negative (Negative)
[2019-11-11 23:51] LABS: Immunoglobulin A 254 mg/dL (87-352); t-Transglutaminase IgA <2 U/mL (0-3)
== END | disposition home or self-care (01) ==
LOC: LAB.FUTURE 12:10 → LAB 12:13
PROVIDERS: PCP Pediatrics; Referring Provider Pediatrics; Visit Provider Pediatrics
DX: K30 Functional dyspepsia (principal); R10.84 Generalized abdominal pain; R11.0 Nausea; R93.89 Abnormal findings on diagnostic imaging of other specified body structures
CPT/HCPCS: 36415; 82784; 83516; 84439; 84443; 85025; 86255

== ENCOUNTER → 2019-11-17 | Outpatient (CLI) | payer MEDICAID, SELFPAY ==
--- NOTE | 2019-11-17 09:29 | US_ITS ---
STUDY: ABDOMINAL ULTRASOUND REASON FOR EXAM: Female, 19 years old. ABD PAIN TECHNIQUE: Transabdominal ultrasound was performed with real-time and static de leon scale imaging. TECHNICAL QUALITY: Adequate. COMPARISON: None. FINDINGS: Liver: The liver measures 16.2 cm. There is normal echogenicity of the liver. The bile ducts are within normal limits. There is hepatic color flow. The direction of portal flow is hepatopetal. There is no demonstrated mass lesion. Portal vein measurement: Gallbladder: Normal distended gallbladder. The gallbladder wall measures 3.0 mm. There is a negative sonographic Acevedo''s sign. There is no pericholecystic fluid. Echogenic foci are seen along the dependent portion of the gallbladder. This may represent either tiny gallstones or sludge within the gallbladder lumen. Common Bile Duct (C.B.D.): The common bile duct measures 2.0 mm. Pancreas: Normal size of the head, body and tail of the pancreas. There is normal echogenicity of the pancreas. There is no demonstrated pancreatic mass or cyst. Spleen: Normal size of the spleen. The spleen measures 12.2 cm x 4.7 cm x 5.2 cm. Right Kidney: Normal size of the right kidney. The right kidney measures 10.6 cm x 5.6 cm by 4.4 cm. Normal renal cortex. The right cortex measures 1.5 cm. There is no demonstrated renal mass or cyst. There is no right hydronephrosis. Left Kidney: Normal size of the left kidney. The left kidney measures 10.4 cm x 5 cm x 4.8 cm. Normal renal cortex. The left cortex measures 1.8 cm. There is no demonstrated renal mass or cyst. There is no left hydronephrosis. Aorta: Unremarkable. I.V.C.: The IVC is patent. There is no ascites. US/Abdomen Complete IMPRESSION: Tiny gallstones versus sludge along the dependent portion of the gallbladder. Electronically Signed: Rhett Acuña, at 10:39 EDT , Service support ,
== END | disposition home or self-care (01) ==
LOC: US 09:29
PROVIDERS: PCP Pediatrics; Referring Provider Pediatrics; Visit Provider Pediatrics
DX: K30 Functional dyspepsia (principal); R11.0 Nausea; R10.84 Generalized abdominal pain; R93.89 Abnormal findings on diagnostic imaging of other specified body structures
CPT/HCPCS: 76700

== ENCOUNTER → 2019-11-18 | Outpatient (CLI) | payer MEDICAID, SELFPAY ==
--- NOTE | 2019-11-18 09:49 | US_ITS ---
STUDY: ULTRASOUND OF THE FEMALE PELVIS - COMPLETE REASON FOR EXAM: Female, 19 years old. OVARIAN DISCREPANCY - PT ON TESTOSTERONE .NO LMP LMP: No LMP. TECHNIQUE: Transabdominal TECHNICAL QUALITY: Adequate. COMPARISON: None. FINDINGS: The uterus is anteverted and is in a midline position. Septated uterus. The uterus measures 6.5 cm x 4.8 cm x 2.7 cm. Normal uterine cervix. The endometrium in the right horn measures 3 mm and the left horn measures 4 mm in thickness, and is hyperechoic. There is no demonstrated endometrial mass. There is no demonstrated myometrial mass. I.U.D. - The patient does not have an I.U.D. The right ovary is visualized. The right ovary measures 3.7 cm x 4.8 cm x 1.7 cm. There is no right ovarian cyst or ovarian mass. There is no visualized right adnexal mass or complex lesion. There is normal arterial and normal venous vascularity. The left ovary is visualized. The left ovary measures 3.9 cm x 2.9 cm x 2.5 cm. There is no left ovarian cyst or ovarian mass. There is no visualized left adnexal mass or complex lesion. There is normal arterial and normal venous vascularity. There is no fluid in the cul-de-sac. The pre void volume of the bladder was 418 ml. Polycystic ovary disease: No. US/Pelvic (Non ) IMPRESSION: Septated uterus. Electronically Signed: Rhett Acuña, at 10:36 EDT , Service support ,
== END | disposition home or self-care (01) ==
PROVIDERS: PCP Pediatrics; Referring Provider Pediatrics; Visit Provider Pediatrics
DX: K30 Functional dyspepsia (principal); R11.0 Nausea; R10.84 Generalized abdominal pain; R93.89 Abnormal findings on diagnostic imaging of other specified body structures
CPT/HCPCS: 76856

== ENCOUNTER 2019-12-22 07:08 | Day surgery (SDC) | payer MEDICAID, SELFPAY ==
[2019-12-09 09:07] VITALS: BMI 27.4
[2019-12-21 10:48] LABS: Probe Check PASS; Specimen Processing Control PASS
[2019-12-22 07:36] VITALS: BP 132/83; PULSE 98; RESP 16; TEMP 38.1; O2SAT 100; BMI 29.5
[2019-12-22 07:44] LABS: Internal QC Validated? YES +Cl - CLEAR BKGD; Pregnancy, Urine Negative Negative
--- NOTE | 2019-12-22 07:49 | HP.PCM_ITS ---
History and Physical Date of Admission: 12/22/19 Date of Service: 12/09/19 MR#: [id number] Acct: [id number] Name: JOHN SALINAS Rep #: [id number] : 2000 Provider: Dr. Nicki Dickey MD Age/Sex: 19/F Location: [facility] Status: Signed Intake Vital Signs 12/09/19 Height 5 ft 6 in 12/09/19 Weight: 173 lb 12/09/19 BMI 27.9 12/09/19 BP 117/76 12/09/19 Blood Pressure Location Rt brachial 12/09/19 Position Sitting 12/09/19 Respiration 16 12/09/19 Pulse 86 12/09/19 Pulse Source Monitor 12/09/19 Temp 98.4 F 12/09/19 Temp Source Temporal 12/09/19 Pulse Oximetry (%) 99 12/09/19 Oxygen Delivery Method room air Intake Visit Reasons: GALLBLADDER Senior Environmental Practice Leader Required: No Is patient in pain?: Yes (RLQ) Pain scale (1-10): 4 Allergies lamotrigine [From Lamictal] Allergy (Verified 12/09/19 09:03) Anaphylaxis risperidone Allergy (Verified 12/09/19 09:03) Angioedema Medications Testosterone Cypionate [Depo-Testosterone] 70 mg IM QWEEK 03/02/18 [History Confirmed 12/09/19] Topiramate 50 mg PO DAILY 05/10/19 [History Confirmed 12/09/19] Lorazepam [Ativan] 1 mg PO DAILY PRN PRN 07/04/19 [History Confirmed 12/09/19] buPROPion XL [Wellbutrin Xl] 300 mg PO DAILY 07/18/19 [History Confirmed 12/09/19] dicyclomine 10 mg capsule 10 mg PO .4 times daily cap 12/09/19 [History Confirmed 12/09/19] ondansetron HCl 4 mg tablet 4 mg PO Q8H PRN 12/09/19 [History Confirmed 12/09/19] pantoprazole 40 mg tablet,delayed release 40 mg PO DAILY #30 tab 12/09/19 [Rx Confirmed 12/09/19] polyethylene glycol 3350 17 gram/dose oral powder g PO 12/09/19 [History Confirmed 12/09/19] PFSH Medical History Bipolar II disorder, most recent episode major depressive (Acute) Generalized anxiety disorder (Acute) Gender identity disorder (Acute) Kidney stone (Chronic) Bipolar disorder (Chronic) Surgical History No significant past surgical history (Acute) Family History Father Leukemia Sarcoma CVA (cerebral vascular accident) Diabetes Sister Asthma Social History (Updated 12/12/19 @ 09:[address] Ching Dickey MD) Smoking Status: Former smoker second hand exposure: No alcohol intake: never substance use type: does not use caffeine: Yes frequency: 3-4 times per week HPI HPI HPI: JOHN SALINAS, is a 19 F who presents to the office today for HPI HPI HPI: JOHN SALINAS, is a 19 F who presents to the office today for abdominal pain/gallbladder sludge versus cholelithiasis. Patient is also transgender on testosterone injections. Patient states he has been having abdominal pain since May 2019 mainly states it is been the lower quadrants of his abdomen and can go to his back or can even go up to his epigastric area. Patient states he can get pain in the middle at night that wakes him up. Patient states he will have nausea in the morning before he ever eats and then also right after he eats. Patient states he has been having bowel movements daily as a been trying to increase his fiber. He says he will have loose stools maybe once a week but normally they are normal formed denies any blood. Currently patient states he has right lower quadrant pain a 4/10 he states this can range up to a 7?8 and can last for hours or days. Patient states that he can have this abdominal pain before after the nausea and vice versa. Patient did stop all of his medications including the Nexium Bentyl and Wellbut rin and Topamax that he was on as he was unsure if that would cause been causing abdominal pain. Patient states he was put on Nexium for a few weeks and did take it for a few weeks but did not notice any difference with it. Patient did see pediatric GI specialists which ordered an ultrasound of the abdomen which showed tiny gallstones versus sludge along the dependent portion of the gallbladder, gallbladder wall was 2.6 mm no pericholecystic fluid, common bile duct was 2 mm. He also had an ultrasound of the pelvis which showed's septated uterus. Per pediatric GI notes patient also had pelvic ultrasound that showed an enlarged right ovary but there is no torsion and was followed by [facility] but was asked for the patient to get a GI work-up first. ROS General General: Yes weight change and fatigue; no appetite, colon cancer, breast cancer or weakness HEENT HEENT: No difficulty swallowing, eye injury, eye surgery, swollen glands or hoarseness Endo Endocrine: No thyroid disease, diabetes mellitus, thyroid cancer, Hair loss, heat intolerance or cold intolerance Skin Skin: No rash or changing moles Musc Musculoskeletal: Yes back problems; no arthritis, rheumatoid arthritis, gout or joint pain Cardio Cardiovascular: No murmur, pacemaker, heart disease, atrial fibrillation, high blood pressure, heart attack, heart stent, palpitations, shortness of breat with exertion or chest pain Psych Psychiatric: Yes depression and anxiety; no hearing voices Resp Respiratory: No shortness of breath, No sleep apnea, No cough, No COPD, No asthma, No emphysema, No wheezing Gastro Gastrointestinal: Yes abdominal pain, Yes nausea or vomiting, Yes diarrhea, Yes constipation, No blood in stool, Yes acid reflux, No hemorrhoids, No ulcers, Yes gallbladder problem, No black,tarry stools Vladimir Hematologic: No blood thinners, No blood disorders, No bleeding, No anemia, No blood clots Neuro Neurologic: No system reviewed and no additional complaints, except as docu, No as per HPI, No abnormal walking, No abnormal hearing, No abnormal movements, No abnormal speech, No behavioral changes, No burning sensations, No confusion, No seizure-like activity, No unsteadiness, No dizziness, No localized weakness, No frequent falls, No headache(s), No lack of coordination, No loss of vision, No memory loss, No numbness, No other visual disturbances, No radiating pain, No restless legs, No sensory deficit, No fainting, No tingling, No tremor(s), No weakness, No other Exam Const General: cooperative, comfortable, no acute distress Resp Effort & Inspection: normal respiratory effort Cardio Rate: regular rate Heart Sounds: no murmurs GI Inspection: non-distended Palpation: soft, no guarding, tender (Right lower quadrant, left upper quadrant, mild, no peritoneal signs) Assessment & Plan Problems 1. Bilateral lower abdominal pain R10.31; R10.32 2. Gastroesophageal reflux disease K21.9 3. LUQ pain R10.12 4. Gallbladder sludge K82.8 Plan Patient states that he did take the Nexium for a couple of weeks which not seem to do anything currently he did go off all of his medications. Did encourage patient to continue his medications especially Wellbutrin and medication for reflux. We will plan to change patient to Protonix to see if that works any better did instruct patient to use Pepcid for first couple days as well. Also asked patient to try to track his fiber intake to see if any of his crampy abdominal pain could be due to that along with his loose stools by having too much fiber in that day. Patient does have issues with constipation which he has a been improved by increasing his fiber intake. Patient's ultrasound of the gallbladder did show small amount of sludge however patient's symptoms are not consistent with typical gallbladder disease. Patient complains pain in his low lower quadrants can either be on the right or left side go to the epigastric or to his back typically occurs randomly not as really associated with food. Patient does have nausea but can have that the middle of the night or right when he wakes up in the morning more consistent with gastric etiology. We will plan to do an EGD and colonoscopy and start patient back on a PPI if symptoms improve prior to discussing laparoscopic cholecystectomy discussed with patient I do not believe that this would take care of his symptoms colonoscopy and option as long as he is aware that it may not relieve all of his symptoms. I have discussed the above with the patient. I have offered the patient EGD and colonoscopy for evaluation. I have explained the risks/benefits of the procedure and described the procedure. I have discussed the risks with the patient, including but not limited to: infection, bleeding, perforation of the GI tract requiring emergency surgery, inability to complete the procedure, injury to any internal organs, complications of anesthesia, etc. - the patient understands and agrees to proceed. I have answered all the patient's questions to the patient's satisfaction and the patient has no further questions. The patient has been given instructions for the colon cleansing preparation. One day of clears, MiraLAX Dulcolax split prep Ching Dickey M.D. Pager: [phone] [facility] [address] [place] [address], [facility], [address] [place] [address] Office: [phone] Orders Orders: Colonoscopy 12/09/19 EGD 12/09/19 Medications New: pantoprazole 40 mg PO DAILY 30 tabs 2RF Discontinued: esomeprazole magnesium (Nexium) Discontinued Reason: Order Changed 40 mg PO DAILY Plan Detail Follow Up We will schedule EGD and colonoscopy Coding Level of Care Code Off vis,new,level 3 Diagnoses Bilateral lower abdominal pain R10.31; R10.32 Gastroesophageal reflux disease K21.9 LUQ pain R10.12 Gallbladder sludge K82.8 12/12/19 0901 <Electronically signed by Ching Serrano am, MD> Date _ Ching Dickey MD
[2019-12-22] MEDS: Lactated Ringers 1,000 ML 100 ML IV (07:55)
--- NOTE | 2019-12-22 08:00 | IMM_PTH ---
PATIENT: JOHN SALINAS LOC: EN U#:[id number] AGE/SX: 19/F ROOM: RE12/22/[address]: Dr. Ching Dickey MD : 2000 BED: DIS: 12/22/2019 SPEC #: [id number] RECD: 12/23/19 09:39 STATUS: GOSIA LEIGHTON #: [id number] WILFREDO: 12/22/19 08:[address]: Ching Dickey DEPT: IMMUNOHISTOCHEMISTRY RECD BY: Milvia Clark ENTERED: 12/23/19 09:39 SP TYPE: IMMUNO OTHR DR: Dr. Alma Arcos MD Tissues: B - Stomach, NOS Procedures: H Pylori (initial) PHYSICIAN & INSTITUTION [place] [address] SPECIMEN INFORMATION: Tissue Source: B - Antrum biopsy Clinical Info: GERD; lower abdomen pain; LUQ pain Specimen Number: [id number] CPT code: 23771 METHODOLOGY: Deparaffinized sections of prefer/formalin-fixed tissue or PAP/DQ stained slides are incubated with monoclonal/polyclonal antibodies/oligonucleotide probes. Localization is made via biotin free immunoperoxidase method. Appropriate controls are performed and reacted as expected. Results on target cell population are indicated in the following table: RESULTS: ANTIBODY / CLONE RESULT Block B H Pylori (polyclonal) negative These tests were developed and their performance characteristics determined by [facility]. They may not have been cleared or approved by the U.S. Food and Drug Administration. The FDA has determined that such clearance or approval is not necessary. INTERPRETATION: B. Antrum, biopsy: Negative for Helicobacter pylori organisms. SJ:daniel 12/24/19
--- NOTE | 2019-12-22 08:00 | COLBX_PTH ---
PATIENT: JOHN SALINAS LOC: EN U#:[id number] AGE/SX: 19/F ROOM: RE12/22/[address]: Dr. Ching Dickey MD : 2000 BED: DIS: 12/22/2019 SPEC #: [id number] RECD: 12/22/19 13:03 STATUS: GOSIA LEIGHTON #: [id number] WILFREDO: 12/22/19 08:[address]: Ching Dickey DEPT: SURGICAL PATHOLOGY RECD BY: Arben Lucas ENTERED: 12/22/19 13:25 SP TYPE: COLON BX OTHR DR: Dr. Alma Arcos MD Tissues: A - Duodenum, NOS B - Gastric mucous membrane C - Gastric mucous membrane D - Ileum, NOS Procedures: Special Stain Group II Surgery Specimen Level IV Alcian Blue/PAS (control) HEADER OPERATION: Colonoscopy, EGD ([facility]) PRE-OP DIAGNOSIS: GERD, lower abdomen pain, LUQ pain TISSUE SUBMITTED: A - Duodenum biopsy, B - Antrum biopsy for histo and H. pylori, C - GE junction biopsy, D - Terminal ileum biopsy MICROSCOPIC DIAGNOSIS A. Duodenum, biopsy: A fragment of small intestinal mucosa, no pathologic diagnosis. B. Antrum, biopsy: Mild gastritis. See microscopic description and comment. C. GE junction, biopsy: Fragments of gastroesophageal mucosa with mild chronic inflammation. Intestinal metaplasia (goblet cell metaplasia) is not identified. See comment. D. Terminal ileum, biopsy: Fragments of small intestinal mucosa, no pathologic diagnosis. SJ:daniel 12/24/19 COMMENT B. The results of immunohistochemistry for Helicobacter pylori will be reported separately ([id number]). C. Alcian blue/PAS stain with matched control is used in the evaluation of the specimen. MICROSCOPIC DESCRIPTION Slides are reviewed. B. The specimen shows fragments of gastric mucosa with chronic inflammatory cell infiltrates in the lamina propria consisting of lymphocytes and plasma cells, consistent with mild chronic gastritis. GROSS DESCRIPTION A - Received in fixative is one container labeled with the patient's name and designated duodenum biopsy. The specimen consists of one irregular fragment of light chakraborty soft tissue that measures 0.3 x 0.2 x 0.1 cm. The specimen is totally submitted in one cassette. B - Received in fixative is one container labeled with the patient's name and designated antrum biopsy. The specimen consists of one irregular fragment of light chakraborty soft tissue that measures 0.6 x 0.2 x 0.1 cm. The specimen is totally submitted in one cassette. C - Received in fixative is one container labeled with the patient's name and designated GE junction biopsy. The specimen consists of two irregular fragments of light chakraborty soft tissue that in aggregate measure 0.5 x 0.3 x 0.1 cm. The specimen is totally submitted in one cassette. D - Received in fixative is one container labeled with the patient's name and designated terminal ileum biopsy. The specimen consists of multiple irregular fragments of light chakraborty soft tissue that in aggregate measure 1 x 0.2 x 0.1 cm. The specimen is totally submitted in one cassette. / SJ:rg 12/23/19 TC:3 CPT: 34495 x4, 01638
[2019-12-22 08:48] VITALS: BP 113/58; BP 132/83; PULSE 93; RESP 16; TEMP 36.3; O2SAT 100
--- NOTE | 2019-12-22 08:51 | OP.EGD_ITS ---
Patient Name: Jonatan Teague Procedure Date: 12/22/2019 7:38 AM Date of : 2000 Age: 19 Procedure: Upper GI endoscopy Indications: Heartburn, Suspected gastro-esophageal reflux disease Providers: Ching Dickey MD Referring MD: Ching Dickey MD Medicines: Monitored Anesthesia Care Patient Profile: This is a 19 year old transgender male. Complications: No immediate complications. Procedure: Pre-Anesthesia Assessment: - Prior to the procedure, a History and Physical was performed, and patient medications and allergies were reviewed. The patient's tolerance of previous anesthesia was also reviewed. The risks and benefits of the procedure and the sedation options and risks were discussed with the patient. All questions were answered, and informed consent was obtained. Prior Anticoagulants: The patient has taken no previous anticoagulant or antiplatelet agents. ASA Grade Assessment: Per anesthesia. After reviewing the risks and benefits, the patient was deemed in satisfactory condition to undergo the procedure. After obtaining informed consent, the endoscope was passed under direct vision. Throughout the procedure, the patient's blood pressure, pulse, and oxygen saturations were monitored continuously. The gastroscope was introduced through the mouth, and advanced to the second part of duodenum. The upper GI endoscopy was accomplished without difficulty. The patient tolerated the procedure well. Scope In: 8:06:22 AM Scope Out: 8:12:35 AM Total Procedure Duration Time 0 hours 6 minutes 13 seconds Findings: The Z-line was variable and was found 35 cm from the incisors. Biopsies were taken with a cold forceps for histology. Striped moderately erythematous mucosa without bleeding was found in the gastric antrum. Biopsies were taken with a cold forceps for histology. Biopsies were taken with a cold forceps for Helicobacter pylori cultures. Lymphangiectasia was present in the second portion of the duodenum. Biopsies were taken with a cold forceps for histology. The cardia and gastric fundus were normal on retroflexion. Impression: - Z-line variable, 35 cm from the incisors. Biopsied. - Erythematous mucosa in the antrum. Biopsied. - Duodenal mucosal lymphangiectasia. Recommendation: - Await pathology results. - Discharge patient to home. - Resume previous diet. - Continue present medications. Procedure Code(s): --- Professional --- 04422, Esophagogastroduodenoscopy, flexible, transoral; with biopsy, single or multiple Diagnosis Code(s): --- Professional --- K22.8, Other specified diseases of esophagus K31.89, Other diseases of stomach and duodenum I89.0, Lymphedema, not elsewhere classified R12, Heartburn CPT copyright 2017 [employer]. All rights reserved. The codes documented in this report are preliminary and upon remote medical coder review may be revised to meet current compliance requirements. MD Ching Feliciano MD 12/22/2019 8:51:13 AM This report has been signed electronically. Number of Addenda: 0 Note Initiated On: 12/22/2019 7:38 AM
--- NOTE | 2019-12-22 08:51 | OP.CCLET_ITS ---
12/22/2019 Alma Arcos [address] [place] [address] Re : Upper GI endoscopy procedure for Jonatan Teague Dear Dr. Arcos This procedure was performed on Sunday, December 22, 2019. My impressions and recommendations are as follows: Impressions : - Z-line variable, 35 cm from the incisors. Biopsied. - Erythematous mucosa in the antrum. Biopsied. - Duodenal mucosal lymphangiectasia. Recommendations : - Await pathology results. - Discharge patient to home. - Resume previous diet. - Continue present medications. My findings are described in the full procedure note, which is enclosed. If I can be of further assistance, please feel free to contact me at Doctor phone number(s): , Work: . Sincerely, MD Ching Feliciano MD 12/22/2019 8:51:13 AM This report has been signed electronically.
[2019-12-22 08:53] VITALS: BP 104/56; BP 132/83; PULSE 84; RESP 16; O2SAT 100
--- NOTE | 2019-12-22 08:56 | OP.COLON_ITS ---
Patient Name: Jonatan Teague Procedure Date: 12/22/2019 8:13 AM Date of : 2000 Age: 19 Procedure: Colonoscopy Indications: Abdominal pain in the left lower quadrant, Abdominal pain in the right lower quadrant Providers: Ching Dickey MD Referring MD: Ching Dickey MD Medicines: Monitored Anesthesia Care Patient Profile: Last Colonoscopy: none. The patient's first colonoscopy is today. This is a 19 year old transgender male. Complications: No immediate complications. Procedure: Pre-Anesthesia Assessment: - Prior to the procedure, a History and Physical was performed, and patient medications and allergies were reviewed. The patient's tolerance of previous anesthesia was also reviewed. The risks and benefits of the procedure and the sedation options and risks were discussed with the patient. All questions were answered, and informed consent was obtained. Prior Anticoagulants: The patient has taken no previous anticoagulant or antiplatelet agents. ASA Grade Assessment: Per anesthesia. After reviewing the risks and benefits, the patient was deemed in satisfactory condition to undergo the procedure. After I obtained informed consent, the scope was passed under direct vision. Throughout the procedure, the patient's blood pressure, pulse, and oxygen saturations were monitored continuously. The pediatric colonoscope was introduced through the anus and advanced to the terminal ileum. The colonoscopy was performed without difficulty. The patient tolerated the procedure well. The quality of the bowel preparation was good. Scope In: 8:15:39 AM Scope Withdrawal Time 0 hours 14 minutes 15 seconds Scope Out: 8:42:37 AM Total Procedure Duration Time 0 hours 26 minutes 58 seconds Findings: The perianal and digital rectal examinations were normal. The colon (entire examined portion) appeared normal. The terminal ileum appeared normal. Biopsies were taken with a cold forceps for histology. Impression: - The entire examined colon is normal. - The examined portion of the ileum was normal. Biopsied. Recommendation: - Discharge patient to home. - Resume previous diet. - Continue present medications. - Await pathology results. - Repeat colonoscopy at age 45/50 (depends if the age changes from 50) for annual screening. Procedure Code(s): --- Professional --- 63193, Colonoscopy, flexible; with biopsy, single or multiple Diagnosis Code(s): --- Professional --- R10.32, Left lower quadrant pain R10.31, Right lower quadrant pain CPT copyright 2017 [employer]. All rights reserved. The codes documented in this report are preliminary and upon telephone solicitor review may be revised to meet current compliance requirements. MD Ching Feliciano MD 12/22/2019 8:55:58 AM This report has been signed electronically. Number of Addenda: 0 Note Initiated On: 12/22/2019 8:13 AM
--- NOTE | 2019-12-22 08:56 | OP.CCLET_ITS ---
12/22/2019 Alma Arcos [address] [place] [address] Re : Colonoscopy procedure for Jonatan Teague Dear Dr. Arcos This procedure was performed on Sunday, December 22, 2019. My impressions and recommendations are as follows: Impressions : - The entire examined colon is normal. - The examined portion of the ileum was normal. Biopsied. Recommendations : - Discharge patient to home. - Resume previous diet. - Continue present medications. - Await pathology results. - Repeat colonoscopy at age 45/50 (depends if the age changes from 50) for annual screening. My findings are described in the full procedure note, which is enclosed. If I can be of further assistance, please feel free to contact me at Doctor phone number(s): , Work: . Sincerely, MD Ching Feliciano MD 12/22/2019 8:55:58 AM This report has been signed electronically.
[2019-12-22 08:58] VITALS: BP 104/57; BP 132/83; PULSE 79; RESP 16; O2SAT 100
[2019-12-22 09:03] VITALS: BP 109/58; BP 132/83; PULSE 83; RESP 16; TEMP 36.3; O2SAT 100
[2019-12-22 09:33] VITALS: BP 132/83
== END 2019-12-22 09:42 | disposition home or self-care (01) ==
LOC: EN 07:09 → AC 07:09
PROVIDERS: Anesthesiology; Physician Assistant; PCP Pediatrics; Referring Provider Surgery; Visit Provider Surgery
PROC: 0DJD8ZZ Inspection of Lower Intestinal Tract, Via Natural or Artificial Opening Endoscopic (ICD-10-PCS; CPT 45378; principal; 2019-12-22 07:55)
DX: K29.70 Gastritis, unspecified, without bleeding (principal); K21.9 Gastro-esophageal reflux disease without esophagitis; I89.0 Lymphedema, not elsewhere classified; Z11.59 Encounter for screening for other viral diseases; F31.81 Bipolar II disorder; Z87.442 Personal history of urinary calculi; Z79.899 Other long term (current) drug therapy; F17.200 Nicotine dependence, unspecified, uncomplicated
CPT/HCPCS: 43239; 45380; 81025; 87635; 88305; 88313; 88342; G2023; J7120; J2405; U0003

== ENCOUNTER 2021-03-26 16:45 | Emergency (ER) | payer MEDICAID, SELFPAY ==
[2021-03-26 16:47] VITALS: BP 122/70; PULSE 80; RESP 16; TEMP 36.7; O2SAT 100; BMI 32.1
--- NOTE | 2021-03-26 17:05 | EKG12_ITS ---
Test Reason : CP Blood Pressure : / mmHG Vent. Rate : 073 BPM Atrial Rate : 073 BPM P-R Int : 122 ms QRS Dur : 078 ms QT Int : 352 ms P-R-T Axes : 049 057 063 degrees QTc Int : 387 ms Sinus rhythm with marked sinus arrhythmia Otherwise normal ECG Confirmed by ANH WEBB, SANDRA ([id number]), material expeditor CELIA CROOKS ([id number]) on 03/28/2021 1:31:50 PM Referred By: MARY Confirmed By:SANDRA KAMARA MD
[2021-03-26] MEDS: Mag Hydrox/Al Hydrox/Simeth 30 ML UDC PO (17:12)
--- NOTE | 2021-03-26 19:27 | EX.ED.VIS.UR ---
HPI HPI - URI History of Present Illness Chief Complaint: Sore Throat Narrative Narrative: Patient with couple days of sore throat, runny nose and congestion. No fevers or chills or body aches. He was vaccinated against Covid, no known contacts that he knows of. Since yesterday he has been having some left-sided sharp brief chest pains intermittently and also into his epigastrium, he was not too concerned about it because he has a history of reflux and IBS but he presents to be evaluated. He denies any bright red blood per rectum, vomiting. ROS ROS ED Constitutional Constitutional ED: Denies chills or fever(s) Eyes Eyes: Denies change in vision or diplopia ENT ENT ED: Reports nasal congestion, rhinorrhea and sore throat Cardiovascular Cardiovascular: Reports as per HPI and chest pain; Denies palpitations Respiratory/Chest Respiratory/Chest: Reports cough; Denies dyspnea Gastrointestinal Gastrointestinal: Reports as per HPI and abdominal pain; Denies diarrhea, nausea or vomiting Genitourinary Genitourinary ED: Denies dysuria or hematuria Musculoskeletal Musculoskeletal: Denies back pain or neck pain Integumentary Denies abscess or rash Neurologic Neurologic: Denies headache(s), paresthesias or weakness Psychiatric Psychiatric: Denies anxiety or suicidal thoughts [facility] Medical History (Updated 03/26/21 @ 19:[address] Owen James MD) Bipolar disorder Bipolar II disorder, most recent episode major depressive Gender identity disorder Generalized anxiety disorder Kidney stone Home Medications testosterone cypionate 70 mg IM QWEEK 03/02/18 [History Last Taken 12/21/19] topiramate 50 mg PO DAILY 05/10/19 [History Last Taken 12/21/19] lorazepam 0.5 mg PO DAILY PRN PRN 07/04/19 [History Last Taken 12/21/19] bupropion HCl 300 mg PO DAILY 07/18/19 [History Last Taken 12/22/19] polyethylene glycol 3350 17 gram/dose oral powder g PO 12/09/19 [History Last Taken Unknown] pantoprazole 40 mg PO DAILY 12/17/19 [History Last Taken 12/22/19] Allergy/AdvReac Type Severity Reaction Status Date / Time lamotrigine [From Lamictal] Allergy Anaphylaxis Verified 03/26/21 16:47 risperidone Allergy Angioedema Verified 03/26/21 16:47 Family History Father Leukemia Sarcoma CVA (cerebral vascular accident) Diabetes Sister Asthma Surgical History No significant past surgical history Social History Smoking Status: Current some day smoker tobacco type: cigarettes second hand exposure: No alcohol intake: never substance use type: does not use caffeine: Yes frequency: 3-4 times per week EXAM Physical Exam Const Vital Signs: 03/26/21 16:47 Temperature 98.1 F Temperature Source Temporal Pulse Rate 80 Respiratory Rate 16 Blood Pressure 122/70 H Blood Pressure Mean 87 Pulse Ox 100 Oxygen Delivery Method Room Air Positive well nourished and well developed General Appearance ED: well developed and NAD HEENT Reports moist mucous membranes HEENT Narrative: Posterior oropharynx normal nonerythematous no exudates normocephalic and atraumatic Eyes PERRL and EOMs intact bilaterally Neck full ROM, no lymphadenopathy and supple Resp normal respiratory effort and clear to auscultation bilaterally Cardio regular rate, regular rhythm and no murmurs GI non-distended GI Narrative: Mildly tender epigastrium only Auscultation: normoactive bowel sounds Palpation: soft Back/Spine no CVA tenderness General Back: other FROM Extremity normal to inspection General Extremety ED: Negative for edema, pulses abnormal or tenderness General Extremity: Negative for edema or pulses abnormal Neuro oriented x3, CN's II-XII intact bilaterally and no sensory deficits noted Sensorium / Orientation: awake and alert Motor Exam: strength 5/5 throughout Skin no rashes or lesions noted and no wounds MDM MDM MDM Narrative Medical decision making narrative: Covid test is negative. I do not think the patient needs any other testing since his EKG is normal and this is a typical discomfort, that temporarily resolved after a GI cocktail. He is already on pantoprazole, reassured and advised to follow-up. We also discussed the possibility this is viral, and he wants to know if there is anything we can give him, a dose of Decadron was offered and he will take that to see if it helps. Since his throat looks normal and there is no lymphadenopathy, I do not think testing for strep is indicated. EKG Initial EKG: Attestation: I personally reviewed and interpreted this EKG as follows: Interpretation: Sinus Rhythm and No Acute Injury Pattern Comments: Normal EKG Discharge Plan Triage Chief Complaint: Sore Throat Other Complaint: Abd Pain Chest Pain ED Provider: Owen James Dx/Rx/DC Orders Clinical Impression: Atypical chest pain, Acute viral pharyngitis Instructions: ED Chest Pain, Noncardiac, ED Pharyngitis, Viral Prescriptions: No Action polyethylene glycol 3350 17 gram/dose powder PO RF: 0 testosterone cypionate 100 MG/ML oil 70 mg IM QWEEK RF: 0 topiramate 50 MG tablet 50 mg PO DAILY RF: 0 lorazepam 0.5 MG tablet 0.5 mg PO DAILY PRN PRN (Reason: Anxiety) RF: 0 bupropion HCl 300 MG tablet extended release 24 hr 300 mg PO DAILY RF: 0 pantoprazole 40 MG tablet,delayed release (DR/EC) 40 mg PO DAILY RF: 0 Primary Care Provider: Care Physician,No Primary Referrals: Care Physician,No Primary [Primary Care Provider] - Doctor,Your [STAFF PHYSICIAN] - 1 Week if not improving Disposition Disposition: Home, Self Care
[2021-03-26] MEDS: dexAMETHasone 4 MG Tablet 8 MG PO (19:51)
== END 2021-03-26 19:53 | disposition home or self-care (01) ==
PROVIDERS: Emergency Provider Emergency Medicine
DX: J02.8 Acute pharyngitis due to other specified organisms (principal); B97.89 Other viral agents as the cause of diseases classified elsewhere; R07.89 Other chest pain; F31.9 Bipolar disorder, unspecified; F64.9 Gender identity disorder, unspecified; F41.1 Generalized anxiety disorder; Z79.899 Other long term (current) drug therapy; F17.210 Nicotine dependence, cigarettes, uncomplicated
CPT/HCPCS: 87426; 93005; 99284; A4216